=== PATIENT | female | born 1950 | race Caucasian/White ===

== ENCOUNTER → 2018-02-14 10:35 | Outpatient (CLI) | payer MEDICARE, SELFPAY ==
[2018-02-14 12:16] LABS: Absolute Lymphocyte Count 0.99 X10^3/ul (0.83-4.51); Absolute Neutrophil Count 4.3 X10^3/uL (2.0-7.7); Basophil# 0.03 X10^3/uL; Basophil% 0.5 % (0-1); Eosinophils% 3.3 % (0-5); Hematocrit 38.9 % (37-47); Hemoglobin 12.8 g/dl (12.0-15.0); Lymphocyte # 0.99 X10^3/ul (4.0); Lymphocyte % 16.5 % (19-41); Mean Corp Hgb Conc 32.9 g/gl (32-36); Mean Corpuscular Hgb 28.9 pg (27.0-32.0); Mean Corpuscular Volume 87.8 fL (81-99); Monocyte# 0.43 X10^3/uL; Monocyte% 7.2 % (0-10); Neutrophil # 4.33 X10^3/uL (2.7-7.7); Neutrophil % 72.3 % (47-70); Platelet Count 220 K/mm3 (150-450); RBC Distribution Width CV 12.4 % (11.6-14.6); RBC Distribution Width SD 39.1 fl (35.1-43.9); Red Blood Count 4.43 M/mm3 (4.2-5.4)
[2018-02-14 12:20] LABS: POSITIVE COUNT NO; POSITIVE DIFFERENTIAL NO; POSITIVE MORPHOLOGY NO
[2018-02-14 12:40] LABS: ALB/GLOB Ratio 1.2 RATIO (0.9-2.4); AST(SGOT) 21 U/L (15-37); Alanine Aminotransfer ALT/SGPT 25 U/L (13-56); Albumin, Serum 3.7 g/dL (3.2-5.0); Alkaline Phosphatase 110 U/L (45-117); Anion Gap 8 (5-15); BUN 14 mg/dL (7-18); BUN/Creat Ratio 16.9 RATIO (10-20); Calcium,Total 8.8 mg/dL (8.5-10.1); Chloride 101 mmol/L (98-107); Cholesterol 168 mg/dL (200); Creatinine, Serum 0.83 mg/dL (0.55-1.02); EST Glomerular Filtration Rate 73 mL/min (>60); Est Glom Filt Rate - Afr Amer 89 mL/min (>60); Glucose 97 mg/dL (74-106); High Density Lipoprotein 39 mg/dL; Potassium 3.1 mmol/L (3.5-5.1); Protein, Total 6.7 g/dL (6.4-8.2); Sodium Level 143 mmol/L (136-145); Triglycerides 176 mg/dL; Very Low Density Lipoprotein 35 mg/dL (5-40)
[2018-02-14 12:43] LABS: Vitamin D,25 Hydroxy 18.8 ng/mL (29.95-100.01)
== END ==
PROVIDERS: Family Provider Family Medicine; PCP Family Medicine; Visit Provider Family Medicine
DX: I10 Essential (primary) hypertension (principal); E78.5 Hyperlipidemia, unspecified; R53.83 Other fatigue; E55.9 Vitamin D deficiency, unspecified
CPT/HCPCS: 36415; 80053; 80061; 82306; 85025

== ENCOUNTER → 2018-05-05 16:18 | Outpatient (CLI) | payer MEDICARE, SELFPAY ==
--- NOTE | 2018-05-05 16:23 | BI_ITS ---
MAMMOGRAPHY - BILATERAL SCREENING REASON FOR EXAM: Female, 67 years old. Routine annual screening examination. PERTINENT HISTORY: Non-contributory. Remote right excisional breast biopsy. TECHNIQUE: Digital bilateral breast jose (3D mammographic acquisition) in the CC and MLO projections. 2-D mediolateral oblique (MLO) and craniocaudad (CC) views of both breasts were obtained. CAD: Full Field Digital Mammography with Computer Added Detection was performed. COMPARISON: Comparison is made with prior study dated May 01, 2017 and March 07, 2016. FINDINGS: Breast Composition: There are scattered areas of fibroglandular density. There are no dominant masses or suspicious calcifications. Surgical clips are seen in the right axillary region. No other significant abnormalities are identified. There has been no significant change since the prior study. BI/SCREENING MAMM (CAD), BILAT IMPRESSION: Stable bilateral screening mammogram. Yearly follow-up mammogram recommended. (A) ASSESSMENT CATEGORY: BIRADS Category 2: Benign. A letter regarding these results will be sent to the patient by the facility within 30 days. Approximately 10% of breast cancers are not detected by mammography. A normal mammogram should not delay biopsy of a clinically suspicious abnormality. [id number] Electronically Signed: Jesus Haider MD at 9:00 EDT Tel [phone], Service support ,
== END ==
PROVIDERS: Family Provider Family Medicine; PCP Family Medicine; Visit Provider Family Medicine
DX: Z12.31 Encounter for screening mammogram for malignant neoplasm of breast (principal)
CPT/HCPCS: 77063; 77067

== ENCOUNTER → 2018-05-23 12:19 | Outpatient (CLI) | payer MEDICARE, SELFPAY ==
[2018-05-23 13:49] VITALS: PULSE 100; PULSE 87; PULSE 90; PULSE 93; PULSE 94; PULSE 97; O2SAT 86; O2SAT 90; O2SAT 92; O2SAT 93; O2SAT 94; O2SAT 97
--- NOTE | 2018-05-23 13:57 | CPS ---
PT IS ESTABLISHED WITH [facility] FOR HOME OXYGEN. SHE IS NOW SWITCHING TO [facility] D/T [facility] CLOSING THE END OF THE MONTH. SHE WAS PLACED ON ROOM AIR AND RESTED PRIOR TO TESTING. AMBULATION BEGAN ON ROOM AIR, AT 2 MIN SPO2 WAS 86%, REST TAKEN AND O2 APPLIED AT 2LPM CONTINUOUS WHICH SHE WORE FOR THE REMAINDER OF TESTING.
--- NOTE | 2018-05-23 14:41 | PCM.PSN.6M ---
PSN 6 Minute Walk Test - 6 Minute Walk Test 6 Minute Walk Test: 6 Minute Walk Test PSN:6-Minute Walk Test Start: 05/23/18 13:42 Freq: Status: Active Protocol: RESP.6MINW Document 05/23/18 13:49 [facility] (Rec: 05/23/18 13:54 [facility] [id number]) 6 Minute Walk Test Date Performed 05/23/18 Time Performed 12:30 Height 61 ft 6 in Weight: 82.554 kg Weight in Pounds 182.[address]: Angelique Andrews Assistive device used: Cane Pre-test Oxygen Delivery Method Room Air Pulse Ox (%) 93 Pulse Rate (60-100 beats/min) 87 Dyspnea Ta Scale (0-10) 0 1st minute Oxygen Delivery Method Room Air Pulse Ox (%) 90 Pulse Rate (60-100 beats/min) 93 Dyspnea Ta Scale (0-10) 0 2nd minute Oxygen Delivery Method Room Air Pulse Ox (%) 86 Pulse Rate (60-100 beats/min) 94 Dyspnea Ta Scale (0-10) 1 Number of Rests Taken 1 Reported Symptoms Increased Work of Breathing 3rd minute Oxygen Flow Rate (L/min) (L/min) 2 Oxygen Delivery Method Nasal Cannula Pulse Ox (%) 93 Pulse Rate (60-100 beats/min) 90 Dyspnea Ta Scale (0-10) 1 4th minute Oxygen Flow Rate (L/min) (L/min) 2 Oxygen Delivery Method Nasal Cannula Pulse Ox (%) 92 Pulse Rate (60-100 beats/min) 93 Dyspnea Ta Scale (0-10) 2 Reported Symptoms Increased Work of Breathing 5th minute Oxygen Flow Rate (L/min) (L/min) 2 Oxygen Delivery Method Nasal Cannula Pulse Ox (%) 94 Pulse Rate (60-100 beats/min) 97 Dyspnea Ta Scale (0-10) 2 Number of Rests Taken 1 Reported Symptoms Increased Work of Breathing 6th minute Oxygen Flow Rate (L/min) (L/min) 2 Oxygen Delivery Method Nasal Cannula Pulse Ox (%) 93 Pulse Rate (60-100 beats/min) 100 Dyspnea Ta Scale (0-10) 2 Reported Symptoms Increased Work of Breathing Post-test Oxygen Flow Rate (L/min) (L/min) 2 Oxygen Delivery Method Nasal Cannula Pulse Ox (%) 97 Pulse Rate (60-100 beats/min) 87 Dyspnea Ta Scale (0-10) 0 Full Laps Walked 4 Partial Lap, Number of Tiles Walked 34 Total Distance Walked (ft) 270 - Interpretation Interpretation: The patient was noted to be 93% on room air. The patient then began ambulating and desaturated in the second minute. 2 L nasal cannula was used for the remaining distance travel. Overall, patient travel 270 feet over the course of 6 minutes with the assistance of a cane and 2 breaks. These findings are consistent with a respiratory limitation exercise tolerance. - Recommendations Recommendations: No supplemental oxygen is indicated at rest. However, patient should be using 2 L/min nasal cannula oxygen with any exertion.
--- NOTE | 2018-07-08 12:38 | WT_ITS ---
PSN 6 Minute Walk Test - 6 Minute Walk Test 6 Minute Walk Test: 6 Minute Walk Test PSN:6-Minute Walk Test Start: 05/23/18 13:42 Freq: Status: Active Protocol: RESP.6MINW Document 05/23/18 13:49 [facility] (Rec: 05/23/18 13:54 [facility] [id number]) 6 Minute Walk Test Date Performed 05/23/18 Time Performed 12:30 Height 61 ft 6 in Weight: 82.554 kg Weight in Pounds 182.[address]: Angelique Andrews Assistive device used: Cane Pre-test Oxygen Delivery Method Room Air Pulse Ox (%) 93 Pulse Rate (60-100 beats/min) 87 Dyspnea Ta Scale (0-10) 0 1st minute Oxygen Delivery Method Room Air Pulse Ox (%) 90 Pulse Rate (60-100 beats/min) 93 Dyspnea Ta Scale (0-10) 0 2nd minute Oxygen Delivery Method Room Air Pulse Ox (%) 86 Pulse Rate (60-100 beats/min) 94 Dyspnea Ta Scale (0-10) 1 Number of Rests Taken 1 Reported Symptoms Increased Work of Breathing 3rd minute Oxygen Flow Rate (L/min) (L/min) 2 Oxygen Delivery Method Nasal Cannula Pulse Ox (%) 93 Pulse Rate (60-100 beats/min) 90 Dyspnea Ta Scale (0-10) 1 4th minute Oxygen Flow Rate (L/min) (L/min) 2 Oxygen Delivery Method Nasal Cannula Pulse Ox (%) 92 Pulse Rate (60-100 beats/min) 93 Dyspnea Ta Scale (0-10) 2 Reported Symptoms Increased Work of Breathing 5th minute Oxygen Flow Rate (L/min) (L/min) 2 Oxygen Delivery Method Nasal Cannula Pulse Ox (%) 94 Pulse Rate (60-100 beats/min) 97 Dyspnea Ta Scale (0-10) 2 Number of Rests Taken 1 Reported Symptoms Increased Work of Breathing 6th minute Oxygen Flow Rate (L/min) (L/min) 2 Oxygen Delivery Method Nasal Cannula Pulse Ox (%) 93 Pulse Rate (60-100 beats/min) 100 Dyspnea Ta Scale (0-10) 2 Reported Symptoms Increased Work of Breathing Post-test Oxygen Flow Rate (L/min) (L/min) 2 Oxygen Delivery Method Nasal Cannula Pulse Ox (%) 97 Pulse Rate (60-100 beats/min) 87 Dyspnea Ta Scale (0-10) 0 Full Laps Walked 4 Partial Lap, Number of Tiles Walked 34 Total Distance Walked (ft) 270 - Interpretation Interpretation: The patient was noted to be 93% on room air. The patient then began ambulating and desaturated in the second minute. 2 L nasal cannula was used for the remaining distance travel. Overall, patient travel 270 feet over the course of 6 minutes with the assistance of a cane and 2 breaks. These findings are consistent with a respiratory limitation exercise tolerance. - Recommendations Recommendations: No supplemental oxygen is indicated at rest. However, patient should be using 2 L/min nasal cannula oxygen with any exertion.
== END ==
PROVIDERS: Family Provider Family Medicine; PCP Family Medicine; Visit Provider Internal Medicine Critical Care Medicine
DX: I27.20 Pulmonary hypertension, unspecified (principal)
CPT/HCPCS: 94618

== ENCOUNTER → 2018-11-19 13:52 | Outpatient (CLI) | payer MEDICARE, SELFPAY ==
[2018-06-25 07:15] VITALS: BMI 36.4
[2018-11-19 14:35] LABS: Absolute Lymphocyte Count 1.34 X10^3/ul (0.83-4.51); Absolute Neutrophil Count 4.8 X10^3/uL (2.0-7.7); Basophil# 0.04 X10^3/uL; Basophil% 0.6 % (0-1); Eosinophil# 0.12 X10^3/uL; Eosinophils% 1.7 % (0-5); Hematocrit 40.4 % (37-47); Hemoglobin 13.1 g/dl (12.0-15.0); Lymphocyte # 1.34 X10^3/ul (4.0); Lymphocyte % 19.4 % (19-41); Mean Corp Hgb Conc 32.4 g/gl (32-36); Mean Corpuscular Hgb 28.7 pg (27.0-32.0); Mean Corpuscular Volume 88.4 fL (81-99); Monocyte# 0.56 X10^3/uL; Monocyte% 8.1 % (0-10); Neutrophil # 4.84 X10^3/uL (2.7-7.7); Neutrophil % 70.1 % (47-70); Platelet Count 230 K/mm3 (150-450); RBC Distribution Width CV 12.5 % (11.6-14.6); RBC Distribution Width SD 39.9 fl (35.1-43.9); Red Blood Count 4.57 M/mm3 (4.2-5.4); White Blood Count 6.9 K/mm3 (4.4-11.0)
[2018-11-19 14:48] LABS: POSITIVE COUNT NO; POSITIVE DIFFERENTIAL NO; POSITIVE MORPHOLOGY NO
[2018-11-19 15:10] LABS: ALB/GLOB Ratio 1.2 RATIO (0.9-2.4); AST(SGOT) 18 U/L (15-37); Alanine Aminotransfer ALT/SGPT 31 U/L (13-56); Albumin, Serum 3.8 g/dL (3.2-5.0); Alkaline Phosphatase 137 U/L (45-117); Anion Gap 5 (5-15); BUN 16 mg/dL (7-18); BUN/Creat Ratio 19.4 RATIO (10-20); Calcium,Total 9.3 mg/dL (8.5-10.1); Chloride 105 mmol/L (98-107); Cholesterol 192 mg/dL (200); Creatinine, Serum 0.83 mg/dL (0.55-1.02); EST Glomerular Filtration Rate 73 mL/min (>60); Est Glom Filt Rate - Afr Amer 89 mL/min (>60); Globulin 3.1 g/dL (2.2-4.2); Glucose 92 mg/dL (74-106); High Density Lipoprotein 43 mg/dL; Potassium 3.8 mmol/L (3.5-5.1); Protein, Total 6.9 g/dL (6.4-8.2); Sodium Level 140 mmol/L (136-145); Triglycerides 168 mg/dL; Very Low Density Lipoprotein 34 mg/dL (5-40)
[2018-11-19 15:13] LABS: Vitamin D,25 Hydroxy 54.8 ng/mL (29.95-100.01)
== END ==
PROVIDERS: Family Provider Family Medicine; PCP Family Medicine; Referring Provider Family Medicine; Visit Provider Family Medicine
DX: E78.5 Hyperlipidemia, unspecified (principal); E55.9 Vitamin D deficiency, unspecified; E87.6 Hypokalemia; I10 Essential (primary) hypertension
CPT/HCPCS: 36415; 80053; 80061; 82306; 85025

== ENCOUNTER → 2018-12-17 06:57 | Outpatient (CLI) | payer MEDICARE, SELFPAY ==
[2018-06-25 07:15] VITALS: BMI 36.4
--- NOTE | 2018-12-17 10:33 | PFTCOMP ---
COMPLETE PULMONARY FUNCTION TEST INTERPRETATION Brief HPI: Patient is a 68 year old female, currently under the care of myself, who presents to [facility] for complete pulmonary function tests secondary to diagnosis of COPD. Respiratory therapist reports good effort and reproducible results. Interpretation: Forced expiration spirometry shows a moderately-severe large airways obstructive ventilatory defect with an FEV1 of 59% predicted. There is no significant bronchodilator response by strict ATS criteria. Spirograms are of good quality and plateau slowly, indicating slowly emptying areas of the lungs. The respiratory flow volume loop shows decreased expiratory flow rates at all lung volumes consistent with airway obstruction. Lung volumes by body plethysmography show a slightly decreased total lung capacity at 3.51 L, 81% predicted. All other lung volumes are within normal limits. Diffusion capacity by carbon monoxide is at the lower limit of normal at 63% predicted. The airway resistance is elevated. Compared to previous pulmonary function tests from 11/21/2016, there is been a significant improvement in TLC and DLCO by 12% and 26% respectively. Impression: Irreversible moderately severe mixed ventilatory defect with some improvement compared to previous study.
== END ==
PROVIDERS: Family Provider Family Medicine; PCP Family Medicine; Referring Provider Internal Medicine Critical Care Medicine; Visit Provider Internal Medicine Critical Care Medicine
DX: D86.0 Sarcoidosis of lung (principal); I27.20 Pulmonary hypertension, unspecified; J96.11 Chronic respiratory failure with hypoxia
CPT/HCPCS: 94060; 94726; 94729

== ENCOUNTER → 2019-05-06 15:30 | Outpatient (CLI) | payer MEDICARE, SELFPAY ==
[2018-12-24 07:33] VITALS: BMI 36.6
--- NOTE | 2019-05-06 15:32 | BI_ITS ---
MAMMOGRAPHY - BILATERAL SCREENING REASON FOR EXAM: Female, 68 years old. Routine annual screening examination. PERTINENT HISTORY: Non-contributory. Remote right excisional breast biopsy. TECHNIQUE: Digital bilateral breast atif (3D mammographic acquisition) in the CC and MLO projections. 2-D mediolateral oblique (MLO) and craniocaudad (CC) views of both breasts were obtained. CAD: Full Field Digital Mammography with Computer Added Detection was performed. COMPARISON: Comparison is made with prior study dated May 05, 2018 and May 01, 2017. FINDINGS: Breast Composition: There are scattered areas of fibroglandular density. There are no dominant masses or suspicious calcifications. Surgical clips are seen in the right axillary region. No other significant abnormalities are identified. There has been no significant change since the prior study. BI/SCREEN MAMM (CAD) W/ATIF BILAT IMPRESSION: Stable bilateral screening mammogram. Yearly follow-up mammogram recommended. (A) ASSESSMENT CATEGORY: BIRADS Category 2: Benign. A letter regarding these results will be sent to the patient by the facility within 30 days. Approximately 10% of breast cancers are not detected by mammography. A normal mammogram should not delay biopsy of a clinically suspicious abnormality. [id number] Electronically Signed: Jesus Haider, at 8:29 EDT , Service support ,
== END ==
PROVIDERS: Family Provider Family Medicine; PCP Family Medicine; Referring Provider Family Medicine; Visit Provider Family Medicine
DX: Z12.31 Encounter for screening mammogram for malignant neoplasm of breast (principal)
CPT/HCPCS: 77063; 77067

== ENCOUNTER → 2019-06-17 10:47 | Outpatient (CLI) | payer MEDICARE, SELFPAY ==
[2018-12-24 07:33] VITALS: BMI 36.6
[2019-06-17 11:16] VITALS: PULSE 100; PULSE 83; PULSE 87; PULSE 90; PULSE 93; PULSE 99; O2SAT 2; O2SAT 87; O2SAT 92; O2SAT 93; O2SAT 94; O2SAT 95
--- NOTE | 2019-06-17 11:19 | CPS ---
pt walked two laps for the 6 minute walk, when patient took breaks she stated her breathing was fine she was just tired and her legs were weak.
--- NOTE | 2019-06-17 15:01 | PCM.PSN.6M ---
PSN 6 Minute Walk Test - 6 Minute Walk Test 6 Minute Walk Test: 6 Minute Walk Test PSN:6-Minute Walk Test Start: 06/17/19 11:15 Freq: Status: Active Protocol: RESP.6MINW Document 06/17/19 11:16 [facility] (Rec: 06/17/19 11:21 [facility] [id number]) 6 Minute Walk Test Date Performed 06/17/19 Time Performed 11:00 Height 5 ft 2 in Weight: 82.554 kg Weight in Pounds 182.[address]: Hans Kevin Assistive device used: Cane Pre-test Oxygen Delivery Method Room Air Pulse Ox (%) 87 Pulse Rate (60-100 beats/min) 87 Dyspnea Ta Scale (0-10) 0 Exertion Ta Scale (6-20) 6 1st minute Oxygen Delivery Method Nasal Cannula Pulse Ox (%) 2 Pulse Rate (60-100 beats/min) 90 Dyspnea Ta Scale (0-10) 101 2nd minute Oxygen Flow Rate (L/min) (L/min) 2 Oxygen Delivery Method Nasal Cannula Pulse Ox (%) 93 Pulse Rate (60-100 beats/min) 99 3rd minute Oxygen Flow Rate (L/min) (L/min) 2 Oxygen Delivery Method Nasal Cannula Pulse Ox (%) 92 Pulse Rate (60-100 beats/min) 100 Number of Rests Taken 1 Reported Symptoms Increased Work of Breathing 4th minute Oxygen Flow Rate (L/min) (L/min) 2 Oxygen Delivery Method Nasal Cannula Pulse Ox (%) 94 Pulse Rate (60-100 beats/min) 90 Number of Rests Taken 1 5th minute Oxygen Flow Rate (L/min) (L/min) 2 Oxygen Delivery Method Nasal Cannula Pulse Ox (%) 94 Pulse Rate (60-100 beats/min) 93 Number of Rests Taken 1 6th minute Oxygen Flow Rate (L/min) (L/min) 2 Oxygen Delivery Method Nasal Cannula Pulse Ox (%) 95 Pulse Rate (60-100 beats/min) 87 Number of Rests Taken 1 Post-test Oxygen Flow Rate (L/min) (L/min) 2 Oxygen Delivery Method Nasal Cannula Pulse Ox (%) 95 Pulse Rate (60-100 beats/min) 83 Dyspnea Ta Scale (0-10) 0 Exertion Ta Scale (6-20) 6 Full Laps Walked 2 Partial Lap, Number of Tiles Walked 0 Total Distance Walked (ft) 118 06/17/19 11:19 Cardiopulmonary Services by Eva Lee pt walked two laps for the 6 minute walk, when patient took breaks she stated her breathing was fine she was just tired and her legs were weak. Initialized on 06/17/19 11:19 - END OF NOTE - Interpretation Interpretation: The patient was noted to be 87% on room air. The patient was then placed on 2 L nasal cannula with improvement to 90%. Patient was able to ambulate a total of 118 feet with the assistance of a cane, but took for breaks secondary to reported leg weakness. These findings are consistent with a musculoskeletal and respiratory limitation exercise tolerance. - Recommendations Recommendations: The patient should be on at least 2 L nasal cannula oxygen at all times.
== END ==
PROVIDERS: Family Provider Family Medicine; PCP Family Medicine; Referring Provider Internal Medicine Critical Care Medicine; Visit Provider Internal Medicine Critical Care Medicine
DX: I27.20 Pulmonary hypertension, unspecified (principal); J96.11 Chronic respiratory failure with hypoxia
CPT/HCPCS: 94618

== ENCOUNTER → 2020-05-05 10:50 | Outpatient (CLI) | payer MEDICARE, SELFPAY ==
[2020-02-03 06:26] VITALS: BMI 37.0
[2020-05-05 11:59] LABS: Absolute Lymphocyte Count 0.97 X10^3/uL (0.83-4.51); Absolute Neutrophil Count 5.4 X10^3/uL (2.0-7.7); Basophil# 0.04 X10^3/uL; Basophil% 0.6 % (0-1); Eosinophil# 0.22 X10^3/uL; Eosinophils% 3.1 % (0-5); Hematocrit 39.6 % (37-47); Hemoglobin 12.8 g/dL (12.0-15.0); Lymphocyte # 0.97 X10^3/ul (4.0); Lymphocyte % 13.7 % (19-41); Mean Corp Hgb Conc 32.3 g/dL (32-36); Mean Corpuscular Hgb 29.3 pg (27.0-32.0); Mean Corpuscular Volume 90.6 fL (81-99); Mean Platelet Vol. 11.5 fl (6.2-12.0); Monocyte# 0.49 X10^3/uL; Monocyte% 6.9 % (0-10); NRBC Flagged by Analyzer 0 % (0-5); Neutrophil # 5.36 X10^3/uL (2.7-7.7); Neutrophil % 75.4 % (47-70); Platelet Count 156 K/mm3 (150-450); RBC Distribution Width CV 12.1 % (11.6-14.6); RBC Distribution Width SD 39.8 fl (35.1-43.9); Red Blood Count 4.37 M/mm3 (4.2-5.4); White Blood Count 7.1 K/mm3 (4.4-11.0)
[2020-05-05 12:21] LABS: ALB/GLOB Ratio 1.3 RATIO (0.9-2.4); AST(SGOT) 16 U/L (15-37); Alanine Aminotransfer ALT/SGPT 21 U/L (13-56); Albumin, Serum 3.7 g/dL (3.2-5.0); Alkaline Phosphatase 112 U/L (45-117); Anion Gap 3 (5-15); BUN 22 mg/dL (7-18); BUN/Creat Ratio 26.7 RATIO (10-20); Calcium,Total 9.3 mg/dL (8.5-10.1); Chloride 105 mmol/L (98-107); Cholesterol 194 mg/dL (200); Creatinine, Serum 0.82 mg/dL (0.55-1.02); EST Glomerular Filtration Rate 73 mL/min (>60); Est Glom Filt Rate - Afr Amer 89 mL/min (>60); Globulin 2.9 g/dL (2.2-4.2); Glucose 95 mg/dL (74-106); High Density Lipoprotein 49 mg/dL; Potassium 3.4 mmol/L (3.5-5.1); Protein, Total 6.6 g/dL (6.4-8.2); Sodium Level 141 mmol/L (136-145); Triglycerides 158 mg/dL; Very Low Density Lipoprotein 32 mg/dL (5-40)
== END ==
PROVIDERS: PCP Family Medicine; Visit Provider Family Medicine
DX: E78.5 Hyperlipidemia, unspecified (principal); Z51.81 Encounter for therapeutic drug level monitoring; D64.9 Anemia, unspecified
CPT/HCPCS: 36415; 80053; 80061; 85025

== ENCOUNTER → 2020-06-04 07:30 | Outpatient (CLI) | payer MEDICARE, SELFPAY ==
[2020-02-03 06:26] VITALS: BMI 37.0
--- NOTE | 2020-06-04 07:32 | BI_ITS ---
MAMMOGRAPHY - BILATERAL SCREENING REASON FOR EXAM: Female, 69 years old. Routine annual screening examination. PERTINENT HISTORY: Non-contributory. Remote right excisional breast biopsy. TECHNIQUE: Digital bilateral breast atif (3D mammographic acquisition) in the CC and MLO projections. 2-D mediolateral oblique (MLO) and craniocaudad (CC) views of both breasts were obtained. CAD: Full Field Digital Mammography with Computer Added Detection was performed. COMPARISON: Comparison is made with prior study dated 05/06/2019 and 05/05/2018. FINDINGS: Breast Composition: There are scattered areas of fibroglandular density. There are no dominant masses or suspicious calcifications. Once again, surgical clips are seen in the right axillary region. Benign appearing left axillary lymph node. No other significant abnormalities are identified. There has been no significant change since the prior study. BI/SCREEN MAMM (CAD) W/ATIF BILAT IMPRESSION: Stable bilateral screening mammogram. Yearly follow-up mammogram recommended. (A) ASSESSMENT CATEGORY: BIRADS Category 2: Benign. A letter regarding these results will be sent to the patient by the facility within 30 days. Approximately 10% of breast cancers are not detected by mammography. A normal mammogram should not delay biopsy of a clinically suspicious abnormality. [id number] Electronically Signed: Jesus Haider, at 8:59 EDT , Service support ,
== END ==
LOC: OPBI 12-07 00:28
PROVIDERS: PCP Family Medicine; Referring Provider Family Medicine; Visit Provider Family Medicine
DX: Z12.31 Encounter for screening mammogram for malignant neoplasm of breast (principal)
CPT/HCPCS: 77063; 77067

== ENCOUNTER → 2021-07-28 15:25 | Outpatient (CLI) | payer MEDICARE, SELFPAY ==
--- NOTE | 2021-07-28 15:27 | BI_ITS ---
MAMMOGRAPHY - BILATERAL SCREENING REASON FOR EXAM: Female, 70 years old. Routine annual screening examination. PERTINENT HISTORY: Non-contributory. Remote right excisional breast biopsy. TECHNIQUE: Digital bilateral breast atif (3D mammographic acquisition) in the CC and MLO projections. 2-D mediolateral oblique (MLO) and craniocaudad (CC) views of both breasts were obtained. CAD: Full Field Digital Mammography with Computer Added Detection was performed. COMPARISON: Comparison is made with prior examination dated 06/04/2020 and 05/06/2019. FINDINGS: Breast Composition: There are scattered areas of fibroglandular density. There are no dominant masses or suspicious calcifications. Once again, surgical clips are seen in the right axillary region. No other significant abnormalities are identified. There has been no significant change since the prior study. BI/SCRN MAMM (CAD)W/ATIF BILAT IMPRESSION: Stable bilateral screening mammogram. Yearly follow-up mammogram recommended. (A) ASSESSMENT CATEGORY: BIRADS Category 2: Benign. A letter regarding these results will be sent to the patient by the facility within 30 days. Approximately 10% of breast cancers are not detected by mammography. A normal mammogram should not delay biopsy of a clinically suspicious abnormality. [id number] Electronically Signed: Jesus Haider MD at 8:26 EST , Service support ,
== END ==
PROVIDERS: PCP Family Medicine; Referring Provider Family Medicine; Visit Provider Family Medicine
DX: Z12.31 Encounter for screening mammogram for malignant neoplasm of breast (principal)
CPT/HCPCS: 77063; 77067

== ENCOUNTER → 2023-11-12 | Outpatient (CLI) | payer MEDICARE, SELFPAY ==
--- NOTE | 2023-11-12 15:39 | MRI_ITS ---
STUDY: MRI BRAIN WITH AND WITHOUT CONTRAST REASON FOR EXAM: Female, 73 years old. NEUROCOGNITIVE DISORDER TECHNIQUE: Standardized multiplanar fat and water weighted pulse sequences were obtained. IV 17ml clariscan was administered for the contrast portion of the examination. COMPARISON: None. FINDINGS: There is mild cerebral atrophy with widening of the extra-axial spaces and ventricular dilatation. There are a limited number of small white matter hyperintensities, distributed throughout the deep white matter tracts of the cerebral hemispheres, consistent with mild chronic white matter ischemic changes. There is no evidence for recent intracranial ischemia or other cause of cytotoxic edema on diffusion weighted imaging (DWI). Normal T2* images of the brain without demonstrated susceptibility artifact. There is no demonstrated hemosiderin stain. Thin section coronal T2-weighted images through the temporal lobes demonstrate bilateral parahippocampal atrophy which can be seen in cognitive decline from Alzheimer''s disease. Normal bilateral basal ganglia. Normal thalami. There is no extra-axial fluid accumulation. Normal flow voids within the major intracranial circulation suggesting patency by spin echo criteria. Normal venous enhancement. There is no enhancing intra-axial or extra-axial abnormality. Normal sella turcica, pituitary gland, infundibular stalk, optic chiasm and hypothalamus. Normal tectal plate and pineal gland. Normal midbrain, nirmal and medulla. Normal cerebellum. Normal basal cisterns. Normal bilateral temporal bones. Normal bilateral internal auditory canals. No demonstrated orbital abnormality, within the constraints of a routine brain study. Normal visualized paranasal sinuses. Normal calvarium and skull base. Normal visualized soft tissue structures. Normal visualized upper cervical spine. MRI/Brain W/WO Contrast IMPRESSION: Involutional changes of the brain, as described above. No acute infarct. Electronically Signed: Frank Lucero MD at 21:12 EDT ,
[2023-11-12 16:21] LABS: CREATININE FINGERSTICK 1.2 mg/dL (0.55-1.02)
== END | disposition home or self-care (01) ==
PROVIDERS: PCP Family Medicine; Referring Provider Psychiatry & Neurology Neurology; Visit Provider Psychiatry & Neurology Neurology
DX: R41.9 Unspecified symptoms and signs involving cognitive functions and awareness (principal)
CPT/HCPCS: 70553; A9575

== ENCOUNTER → 2023-12-19 | Outpatient (CLI) | payer MEDICARE, SELFPAY ==
[2023-12-19 17:40] LABS: Absolute Lymphocyte Count 1.05 X10^3/uL (0.83-4.51); Absolute Neutrophil Count 4.4 X10^3/uL (2.0-7.7); Basophil# 0.04 X10^3/uL; Basophil% 0.6 % (0-1); Eosinophil# 0.22 X10^3/uL; Eosinophils% 3.5 % (0-5); Hematocrit 40.4 % (37-47); Hemoglobin 12.6 g/dL (12.0-15.0); Lymphocyte # 1.05 X10^3/ul (0.83-4.51); Lymphocyte % 16.9 % (19-41); Mean Corp Hgb Conc 31.2 g/dL (32-36); Mean Corpuscular Hgb 28.6 pg (27.0-32.0); Mean Corpuscular Volume 91.8 fL (81-99); Mean Platelet Vol. 11.2 fl (6.2-12.0); Monocyte# 0.49 X10^3/uL; Monocyte% 7.9 % (0-10); NRBC Flagged by Analyzer 0 % (0-5); Neutrophil # 4.39 X10^3/uL (2.7-7.7); Neutrophil % 70.9 % (47-70); Platelet Count 192 K/mm3 (150-450); RBC Distribution Width CV 13.1 % (11.6-14.6); RBC Distribution Width SD 44.1 fl (35.1-43.9); White Blood Count 6.2 K/mm3 (4.4-11.0)
[2023-12-19 17:55] LABS: Vitamin D,25 Hydroxy 9.5 ng/mL
[2023-12-19 18:04] LABS: ALB/GLOB Ratio 1.2 RATIO (0.9-2.4); AST(SGOT) 22 U/L (15-37); Alanine Aminotransfer ALT/SGPT 81 U/L (13-56); Albumin, Serum 3.5 g/dL (3.2-5.0); Alkaline Phosphatase 184 U/L (45-117); Anion Gap 3 (5-15); BUN 19 mg/dL (7-18); BUN/Creat Ratio 20.8 RATIO (10-20); Calcium,Total 9.1 mg/dL (8.5-10.1); Chloride 107 mmol/L (98-107); Cholesterol 201 mg/dL (200); Creatinine, Serum 0.91 mg/dL (0.55-1.02); EST Glomerular Filtration Rate 64 mL/min (>60); Est Glom Filt Rate - Afr Amer 78 mL/min (>60); Globulin 2.9 g/dL (2.2-4.2); Glucose 95 mg/dL (74-106); High Density Lipoprotein 50 mg/dL; Potassium 4.1 mmol/L (3.5-5.1); Protein, Total 6.4 g/dL (6.4-8.2); Sodium Level 140 mmol/L (136-145); Triglycerides 114 mg/dL; Very Low Density Lipoprotein 23 mg/dL (5-40)
== END | disposition home or self-care (01) ==
LOC: BFHLAB 14:57
PROVIDERS: PCP Family Medicine; Referring Provider Family Medicine; Visit Provider Family Medicine
DX: E78.5 Hyperlipidemia, unspecified (principal); E55.9 Vitamin D deficiency, unspecified; Z51.81 Encounter for therapeutic drug level monitoring
CPT/HCPCS: 36415; 80053; 80061; 82306; 85025

== ENCOUNTER → 2024-05-21 | Outpatient (CLI) | payer MEDICARE, SELFPAY ==
[2024-05-21 18:27] LABS: Anion Gap 7 (5-15); BUN 15 mg/dL (7-18); BUN/Creat Ratio 12.5 RATIO (10-20); Calcium,Total 9.5 mg/dL (8.5-10.1); Chloride 102 mmol/L (98-107); EST Glomerular Filtration Rate 47 mL/min (>60); Est Glom Filt Rate - Afr Amer 57 mL/min (>60); Glucose 140 mg/dL (74-106); Potassium 3.7 mmol/L (3.5-5.1); Sodium Level 139 mmol/L (136-145)
[2024-05-21 18:30] LABS: Vitamin D,25 Hydroxy 40.9 ng/mL
== END | disposition home or self-care (01) ==
LOC: BFHLAB 15:46
PROVIDERS: PCP Family Medicine; Referring Provider Physician Assistant; Visit Provider Physician Assistant
DX: E55.9 Vitamin D deficiency, unspecified (principal)
CPT/HCPCS: 36415; 80048; 82306

== ENCOUNTER → 2024-12-14 | Outpatient (CLI) | payer MEDICARE, SELFPAY | END | disposition home or self-care (01) | LOC: MTLAB 16:02 | PROVIDERS: PCP Family Medicine | DX: R41.89 Other symptoms and signs involving cognitive functions and awareness (principal) | CPT/HCPCS: 36415 ==

== ENCOUNTER 2024-12-20 15:32 | Inpatient (IN) | payer MEDICARE, SELFPAY ==
[2024-12-20] VITALS (25 sets, daily range): BP systolic 62–145; BP diastolic 30–121; PULSE 83–144; RESP 20–41; TEMP 36.8–39.5; O2SAT 90–100; BMI 33.5
--- NOTE | 2024-12-20 16:19 | EX.ED.DYSGE1 ---
HPI History of Present Illness Chief Complaint: General Illness Informant: patient and friend Onset/Context/Timing Onset: Days Context: Gradual Onset Timing: Continuous Current Severity: Mild Maximum Severity: Mild Narrative Narrative: 74-year-old female history of sarcoidosis on 2 L oxygen recently diagnosed with dementia and hypertension. She lives in the basement of one of her friends. Friends with her states that she has had nausea last several days decreased mental status. She has had nausea and vomiting since Saturday intermittently. Decreased oral intake. No diarrhea. No dysuria. No fever. No recent falls or head trauma. Prior similar symptoms: No Recent Illness/Hospitalization: No [facility] Medical History (Updated 12/20/24 @ 22:[address] Silvano Wylie MD) Chronic hypoxic respiratory failure, on home oxygen therapy CKD (chronic kidney disease), stage II Dementia Tear of meniscus of right knee HTN (hypertension) Pulmonary sarcoidosis Chronic fatigue Obesity Cardiomegaly Degenerative joint disease of knee Pulmonary hypertension, secondary Hyperlipidemia Abnormality of gait and mobility Home Medications ?Medication ?Instructions ?Recorded ?Last Taken ?Type simvastatin 20 mg tablet (Zocor) 20 mg PO QPM 08/13/17 Unknown History Disability Placard #1 ea 11/11/23 Unknown Rx albuterol sulfate 90 mcg/actuation 2 puff inhalation Q6H PRN 11/22/23 Unknown Rx aerosol inhaler (ProAir HFA) shortness of breath or wheezing #18 grams donepezil 10 mg tablet 10 mg PO QDAY 11/22/23 Unknown History hydrochlorothiazide 25 mg tablet 25 mg PO QDAY 11/22/23 Unknown History potassium chloride 10 mEq 10 meq PO BID 11/22/23 Unknown History tablet,extended release fluticasone propionate 230 2 inh inhalation BID #3 ea 11/26/23 Unknown Rx mcg-salmeterol 21 mcg/actuation HFA inhaler (Advair HFA) mirtazapine 7.5 mg tablet 7.5 mg PO QHS #30 tabs 12/14/24 Unknown Rx Allergy/AdvReac Type Severity Reaction Status Date / Time No Known Allergies Allergy Verified 12/20/24 15:38 Family History Mother No problems noted. Father No problems noted. Family History no significant family his Surgical History History of arthroscopy of both knees right axillary lymph node removal Social History household members: friend(s) current occupational status: retired pets and animals: No Smoking Status: Never smoker second hand exposure: Yes alcohol intake: never substance use type: does not use caffeine: Yes Type: carbonated beverages do you feel safe at home: Yes ROS ROS ED ROS Narrative Nausea and vomiting. Decreased oral intake. Constitutional Constitutional ED: Denies chills or fever(s) Eyes Eyes: Denies blurry vision ENT ENT ED: Denies ear pain Cardiovascular Cardiovascular: Denies chest pain Respiratory/Chest Respiratory/Chest: Denies cough or dyspnea Gastrointestinal Gastrointestinal: Reports nausea and vomiting; Denies abdominal pain, constipation, diarrhea or melena Genitourinary Genitourinary ED: Denies dysuria or hematuria Musculoskeletal Musculoskeletal: Denies arthralgias Integumentary Denies abscess Neurologic Neurologic: Denies headache(s) Psychiatric Psychiatric: Denies anxiety Endocrine Endocrinology: Denies cold intolerance Hematologic/Lymphatic Hematologic/Lymphatic: Reports none Allergic/Immunologic Allergic/Immunologic ED: Denies mouth swelling, tongue swelling or urticaria EXAM Physical Exam Narrative Exam Narrative: 74-year-old female vital signs are stable and her blood pressure is elevated at 140/120 1 repeat 114/92. Pulse ox is 93% on 2 L 90% without oxygen. H EENT exam pupils round react light. Dry mucous membranes. Neck nontender no JVD. Lungs clear to auscultation bilaterally. Heart regular rhythm rate about 80 no murmur. Chest wall ribs nontender. Abdomen soft nontender. Moving all 4 extremities. Calves are nontender without edema. Neurologically she is awake. Her eyes are open. She does not know month year or where she is at. She has recently been diagnosed with dementia her friend said this is become her baseline. Const Vital Signs: 12/20/24 15:38 12/20/24 15:46 12/20/24 17:33 Temperature 98.2 F Temperature Source Oral Pulse Rate 83 Respiratory Rate 20 H Blood Pressure 145/121 H 114/92 H 94/51 L Blood Pressure Mean 129 99 65 Pulse Ox 90 93 Oxygen Delivery Method Room Air Nasal Cannula Oxygen Flow Rate (L/min) 2 12/20/24 18:58 Temperature Temperature Source Pulse Rate 101 H Respiratory Rate 28 H Blood Pressure 143/91 H Blood Pressure Mean 108 Pulse Ox 98 Oxygen Delivery Method Nasal Cannula Oxygen Flow Rate (L/min) 2 Positive well nourished and well developed; Negative for cachectic, contractures or unkempt General Appearance ED: well developed and NAD; Negative for unkempt, cachectic, contractures, cyanotic or diaphoretic Nutritional Appearance: Negative for cachectic HEENT Reports dry mucous membranes; Denies moist mucous membranes Negative for trauma or tenderness Mouth ED: Yes dry mucous membranes Mouth: dry mucous membranes Eyes PERRL Neck no lymphadenopathy, supple and no JVD Chest Wall inspection of chest normal and palpation of chest normal Resp normal respiratory effort and clear to auscultation bilaterally Effort and Inspection: Negative for retractions Auscultation: Negative for rales, rhonchi, wheezes or diminished lung sounds Cardio regular rhythm, S1 normal heart sound and S2 normal heart sound GI normal to inspection, nondistended, normoactive bowel sounds, non-tender, non-distended and no masses Palpation: soft; Negative for tender, guarding or rebound tenderness present Back/Spine no CVA tenderness General Back: Negative for CVA tenderness Cervical Spine: Negative for cervical spine tenderness Thoracic Spine / Upper Back: Negative for thoracic spinal tenderness or paraspinal muscle tenderness Lumbar Spine / Lower Back: Negative for lumbar spinal tenderness Extremity normal to inspection General Extremety ED: Negative for edema or tenderness General Extremity: Negative for edema Neuro CN's II-XII intact bilaterally Sensorium / Orientation: alert; Negative for orientation impaired, lethargic or stuporous Motor Exam: strength 5/5 throughout Psych mental status grossly normal Appearance: Negative for unkempt Attitude: No agitated Mood & Affect: Negative for depressed, anxious or tearful Skin no rashes or lesions noted and no wounds General Skin Exam: Negative for jaundice Lesions: No lesion noted Rashes: No rashes noted Sepsis Attestation Sepsis Alert: Yes Sepsis Attestation: Agree w/Sepsis Date exam was performed: 12/20/24 Possible Source of Sepsis: GI tract/intra-abdominal Sepsis Organ Dysfunction Criteria Present: SBP < 90 mmHg or MAP < 65 mmHg, Creatinine > 2.0 mg/dL, UOP < 0.5 mL/kg/hour for 2 consecutive hours, Total Bilirubin > 2 mg/dl and Lactic Acid > 2 mmol/L MDM MDM MDM Narrative Medical decision making narrative: 73-year-old female with dementia and recent nausea and vomiting. Abdomen is benign. She will be given IV fluids for mild dehydration and Zofran. Screening labs to be obtained. Repeat exam at 8:15 PM. Abdomen is benign. Patient converted to an A-fib RVR. She was treated with a Cardizem bolus. In A-fib after the Cardizem bolus but currently her heart rates in the 130 range. She will be started on a Cardizem drip. It did improve with the bolus. I went over all of her test results with her friend that she lives with. Patient herself has dementia and not sure she is exactly comprehending everything. I have the hospitalist on page for admission. I will also give her a dose of IV Zosyn due to the leukocytosis and the biliary obstruction. I have already spoken to the hospitalist. ARAMIS paged. Patient has multiple issues going on at this time including cardiac and GI. If she is admitted here she will be admitted to the ICU. I also spoke to ARAMIS. He is comfortable with the plan and admission here. He understands the patient has multiple current issues going on. Patient remained hypotensive. She was given Cardizem her A-fib RVR improved but still going 130-140. She has had 2 L of fluid and is currently on her third. Will going to have to cardiovert her to try to get her on A-fib to try to help improve her blood pressure. Patient be given 10 mg IV of etomidate and cardioverted. When she initially presented she was not in A-fib. Patient herself is demented. I have explained this to her but not sure exactly how much of it if any of that she really understands. Her friend has left the emergency department after I told her she was going to be admitted. Patient was given a total of 10 of etomidate. She was cardioverted using 360 J. She immediately cardioverted to a sinus rhythm rate around 101. Patient did not present initially as sepsis. But given her white count and hypotension I believe she is sepsis and septic shock. Also I think some of the hypotension was related to her A-fib RVR. She was started on IV Zosyn. She will be admitted to the ICU. Hypotension could also be due to dehydration. Probably a combination of sepsis, A-fib RVR, the HI and dehydration. She has received 2 L IV fluid she is currently on the third. Current blood pressure is 85/47. Repeat exam at 10:48 PM pressure is 118/85. She is awake and alert. Lerma catheter shows a fever of 1 or 2.9 show given Tylenol for that. She has received 3 L of saline. She received IV antibiotics. She is being admitted to the ICU. The cardioversion of the A-fib seem to greatly improve her blood pressure currently. History & Record Review Discussion w/independent historian: Friend Additional record(s) reviewed:: Prior inpatient record, Prior outpatient record, Prior ED visit and Prior labs Lab Data Attestation: I reviewed the patient's lab results. Lab results narrative: CBC is elevated with a white count 18.7. H&H 14 and 41. Platelets are below normal at 116. Chemistry shows sodium 139. Gap 23. BUN and creatinine of 49 and 3.97. Liver enzymes show an elevated total bilirubin of 5.85. Lipase 879 consistent with pancreatitis. TSH normal at 3.0. Lactic acid is elevated at 6.6. Troponin was elevated at 499. Labs: Laboratory Results - last 24 hr 12/20/24 12/20/24 12/20/24 17:30 18:20 19:18 WBC 18.7 H RBC 4.73 Hgb 14.2 Hct 41.2 MCV 87.1 MCH 30.0 MCHC 34.5 RDW Std Deviation 41.6 RDW Coeff of Patrice 13.1 Plt Count 116 L MPV 12.5 H Immature Gran % (Auto) 2.100 H Neut % (Auto) 94.8 H Lymph % (Auto) 1.2 L Gosper % (Auto) 1.7 Eos % (Auto) 0.0 Baso % (Auto) 0.2 Absolute Neuts (auto) 17.7 H Absolute Lymphs (auto) 0.23 L Nucleated RBC % 0 Platelet Estimate MOD DEC RBC Morphology NORM C+C Sodium 139 Potassium 3.4 Chloride 97 L Carbon Dioxide 18.8 L Anion Gap 23 H BUN 49 H Creatinine 3.97 H Estim Creat Clear Calc 12.63 L Est GFR (MDRD) Non-Af 11 L BUN/Creatinine Ratio 12.4 Glucose 75 Lactic Acid 6.6 H* Calcium 8.9 Phosphorus Magnesium Total Bilirubin 5.85 H AST 120 H ALT 141 H Alkaline Phosphatase 326 H Troponin T High Sens 499 H* Troponin T Hi Sens 2 Hr Total Protein 6.4 Albumin 3.6 Globulin 2.8 Albumin/Globulin Ratio 1.3 Lipase 879 H TSH 3.090 Urine Color Cancelled Urine Clarity Cancelled Urine pH Cancelled Ur Specific [place] Cancelled U Specif Grav (Refrac) Cancelled Urine Protein Cancelled Urine Glucose (UA) Cancelled Urine Ketones Cancelled Urine Occult Blood Cancelled Urine Nitrite Cancelled Urine Bilirubin Cancelled Urine Urobilinogen Cancelled Ur Leukocyte Esterase Cancelled Urine RBC Cancelled Urine WBC Cancelled Ur Squamous Epith Cells Cancelled Ur Transition Epith Cell Cancelled Ur Renal Epithelial Cell Cancelled Calcium Oxalate Crystal Cancelled Uric Acid Crystals Cancelled Triple Phos Crystals Cancelled Other Crystals Cancelled Amorphous Sediment Cancelled Urine Bacteria Cancelled Hyaline Casts Cancelled Fine Granular Casts Cancelled Coarse Granular Casts Cancelled Waxy Casts Cancelled RBC Casts Cancelled WBC Casts Cancelled Urine Mucus Cancelled Urine Trichomonas Cancelled Urine Yeast Cancelled 12/20/24 19:49 WBC RBC Hgb Hct MCV MCH MCHC RDW Std Deviation RDW Coeff of Patrice Plt Count MPV Immature Gran % (Auto) Neut % (Auto) Lymph % (Auto) Gosper % (Auto) Eos % (Auto) Baso % (Auto) Absolute Neuts (auto) Absolute Lymphs (auto) Nucleated RBC % Platelet Estimate RBC Morphology Sodium Potassium Chloride Carbon Dioxide Anion Gap BUN Creatinine Estim Creat Clear Calc Est GFR (MDRD) Non-Af BUN/Creatinine Ratio Glucose Lactic Acid Calcium Phosphorus 2.5 L Magnesium 1.5 Total Bilirubin AST ALT Alkaline Phosphatase Troponin T High Sens Troponin T Hi Sens 2 Hr 523 H* Total Protein Albumin Globulin Albumin/Globulin Ratio Lipase TSH Urine Color Urine Clarity Urine pH Ur Specific [place] U Specif Grav (Refrac) Urine Protein Urine Glucose (UA) Urine Ketones Urine Occult Blood Urine Nitrite Urine Bilirubin Urine Urobilinogen Ur Leukocyte Esterase Urine RBC Urine WBC Ur Squamous Epith Cells Ur Transition Epith Cell Ur Renal Epithelial Cell Calcium Oxalate Crystal Uric Acid Crystals Triple Phos Crystals Other Crystals Amorphous Sediment Urine Bacteria Hyaline Casts Fine Granular Casts Coarse Granular Casts Waxy Casts RBC Casts WBC Casts Urine Mucus Urine Trichomonas Urine Yeast Radiography Chest X-Ray - ED: 2 View, Read by ED Physician, Read by Radiologist, Heart, Lungs, Mediastinum, Bony Structures, No Acute Disease and Chronic Changes Diagnostic Testing: Clinical Impression(s) from Imaging Studies Chest X-Ray 12/20/24 17:55 IMPRESSION: Findings suggestive of mild viral infection. 12 mm left upper lobe nodule which may represent a calcified granuloma. Recommend further evaluation with CT of the chest. Reading Location: [facility] Abdomen/Pelvis CT 12/20/24 18:35 IMPRESSION: 1. Distended gallbladder and cholelithiasis. 2. 24 mm common bile duct dilation secondary to a distal obstructing calculus, compatible with acute choledocholithiasis. 3. 20 x 16 mm low-attenuation lesion mid pancreatic body. No ductal dilation. Recommend further evaluation with MRCP. 4. Multiple pulmonary nodules, measuring between 7-[address] of the chest for further evaluation. Reading Location: [facility] Chest x-ray, 2 views, AP and lateral, interpreted by by myself and radiologist. Normal cardiac silhouette. Chronic changes. No obvious pneumonia. Rhythm Strip Rhythm Strip: A-fib Rate: 176 Ectopy: None EKG Initial EKG: Interpretation: Atrial Fibrillation Comments: A-fib with RVR rate of 176 no acute signs of HI. Incomplete right bundle branch block. RVH. Follow-up EKG: Attestation: I personally reviewed and interpreted this EKG as follows: Interpretation: Sinus Tachycardia Comments: Post cardioversion. Sinus tachycardia rate of 101. Right bundle branch block. No ST elevation. Procedures Procedural Sedation 1 (Initial Baseline): Consent Signed: No Any Problems With Anesthesia: No Relationship: Patient has dementia and is a very limited informant. Sedation medication: Etomidate (10 mg IV.) Dose: 10 Route: IV Total Moderate Sedation Units: 10 Maliampati Score: Class II ASA Classification: III Comment:: Patient was procedurally sedated with a total of 10 mg of etomidate. She was then cardioverted. She tolerated it well. She was in A-fib RVR. She is now in a sinus rhythm around the 100. Blood pressure appears to be improving with the cardioversion and IV fluids. Critical Care Time Critical Care Time: Yes Critical care time (excluding procedures): 30-74 minutes, Including time spent:, Discussing w/Patient &/or Family/Supervisor Insecticide, Discussing w/Consultants, Arranging Admission or Transfer, Performing Direct Patient Care at Bedside and - (45 minutes.) Discharge Plan Dx/Rx/DC Orders Clinical Impression: Abdominal pain, Nausea and vomiting, Acute gallstone pancreatitis, Biliary obstruction, Atrial fibrillation with rapid ventricular response, History of dementia, Acute dehydration, Acute kidney injury, Leukocytosis, Non-ST elevated myocardial infarction, Acute lactic acidosis, Acute hypotension, Mass of pancreas, Septic shock Disposition Disposition: Acute Care [facility]
[2024-12-20 17:49] LABS: Absolute Lymphocyte Count 0.23 X10^3/uL (0.83-4.51); Absolute Neutrophil Count 17.7 X10^3/uL (2.0-7.7); Basophil# 0.03 X10^3/uL; Basophil% 0.2 % (0-1); Hematocrit 41.2 % (37-47); Hemoglobin 14.2 g/dL (12.0-15.0); Lymphocyte # 0.23 X10^3/ul (0.83-4.51); Lymphocyte % 1.2 % (19-41); Mean Corp Hgb Conc 34.5 g/dL (32-36); Mean Corpuscular Volume 87.1 fL (81-99); Mean Platelet Vol. 12.5 fl (6.2-12.0); Monocyte# 0.32 X10^3/uL; Monocyte% 1.7 % (0-10); NRBC Flagged by Analyzer 0 % (0-5); Neutrophil # 17.68 X10^3/uL (2.7-7.7); Neutrophil % 94.8 % (47-70); POSITIVE DIFFERENTIAL YES; POSITIVE MORPHOLOGY YES; Platelet Count 116 K/mm3 (150-450); RBC Distribution Width CV 13.1 % (11.6-14.6); RBC Distribution Width SD 41.6 fl (35.1-43.9); Red Blood Count 4.73 M/mm3 (4.2-5.4); White Blood Count 18.7 K/mm3 (4.4-11.0)
--- NOTE | 2024-12-20 17:55 | RAD_ITS ---
PROCEDURE: CHEST PA AND LATERAL 12/20/2024 REASON FOR EXAM: WEAKNESS TECHNIQUE: Frontal and lateral views of the chest. COMPARISON: None FINDINGS: Hardware: None Heart: Mild cardiomegaly. Mediastinum: There are atherosclerotic calcifications of the thoracic aorta. Lungs: 12 mm left upper lung nodule, likely a calcified granuloma. Mild bilateral interstitial thickening. Mild bibasilar atelectasis. No pneumothorax. No pleural effusion. Bones: Degenerative changes are identified within the thoracic spine. RAD/Chest PA and Lateral IMPRESSION: Findings suggestive of mild viral infection. 12 mm left upper lobe nodule which may represent a calcified granuloma. Recomm end further evaluation with CT of the chest. Reading Location: [facility]
[2024-12-20] MEDS: Ondansetron 4 MG/2 ML Vial IV (18:06)
[2024-12-20 18:07] LABS: ALB/GLOB Ratio 1.3 RATIO (0.9-2.4); AST(SGOT) 120 U/L (<=31); Alanine Aminotransfer ALT/SGPT 141 U/L (<=34); Albumin, Serum 3.6 g/dL (3.4-4.8); Alkaline Phosphatase 326 U/L (35-104); Anion Gap 23 (5-15); BUN 49 mg/dL (4-19); BUN/Creat Ratio 12.4 RATIO (10-20); Calcium,Total 8.9 mg/dL (7.6-11.0); Carbon Dioxide 18.8 mmol/L (21.0-32.0); Chloride 97 mmol/L (98-108); Creatinine, Serum 3.97 mg/dL (0.70-1.20); EST Glomerular Filtration Rate 11 (>60); Estimated Creatinine Clearance 12.63 ml/min (50-250); Globulin 2.8 g/dL (2.2-4.2); Glucose 75 mg/dL (70-99); Potassium 3.4 mmol/L (3.3-5.1); Protein, Total 6.4 g/dL (5.9-8.4); Sodium Level 139 mmol/L (133-145); Total Bilirubin 5.85 mg/dL (0.00-1.30)
[2024-12-20] MEDS: 0.9% Normal Saline (1000mL) 1,000 ML 1000 ML IV (18:07)
[2024-12-20 18:21] LABS: Differential Indicated SCAN CRITERIA MET
[2024-12-20 18:22] LABS: Platelet Estimate MOD DEC (ADEQ); Red Cell Morphology NORM C+C NORMAL (NORM C&C)
--- NOTE | 2024-12-20 18:35 | CT_ITS ---
PROCEDURE: ABDOMEN/PELVIS WITHOUT CONT 12/20/2024 REASON FOR EXAM: ELEVATED LIVER ENZYMES W/ VOMITING TECHNIQUE: Abdomen and pelvis CT without intravenous contrast. Noncontrast technique limits evaluation of the abdominal and pelvic viscera. Coronal and Sagittal reconstruction series were provided. One or more dose reduction techniques were used (e.g., Automated exposure control, adjustment of the mA and/or kV according to patient size, use of iterative reconstruction technique). PATIENT PREPARATION: Per protocol ORAL CONTRAST TYPE: None. AMOUNT: mL COMPARISON: None FINDINGS: Lung bases: Patchy opacities in the lung base, compatible with atelectasis. Multiple pulmonary nodules are noted within the right lower lobe. For example 9 mm right lower lobe nodule (series 2, image 12) 7 mm anterior right middle lobe nodule (image 12 and 10 mm right lower lobe nodule (image 17). Liver: Normal size. No obvious mass. Gallbladder: Cholelithiasis and moderately distended gallbladder. No intrahepatic ductal dilation. Common bile duct is dilated and measures 24 mm. Within the distal common bile duct at the hilum, there is a 15 mm obstructing lesion (series 601 image 45, series 2 image 92). Spleen: No splenomegaly. Calcified granulomas. Pancreas: Homogeneous attenuation. Within the mid pancreatic body, there is a 20 x 16 mm low-attenuation lesion (series 12, image 68, series 601 image 38). No ductal dilation. Adrenals: Unremarkable. Kidneys: No urolithiasis. No hydronephrosis. Bladder: Urinary bladder is collapsed which limits evaluation. Reproductive Organs: No pelvic mass. Bowel: Stomach is unremarkable. No bowel dilation or wall thickening. Colonic diverticulosis without diverticulitis Appendix: The appendix is not identified. There is no inflammatory process identified in the right lower quadrant to suggest appendicitis. Lymph nodes: No suspicious lymph node enlargement. Vasculature: Mild diffuse atherosclerotic calcifications are noted. Peritoneum / Retroperitoneum: No ascites. No pneumoperitoneum. Bones: Degenerative changes of the spine. Soft tissue: Unremarkable. CT/Abdomen/Pelvis without Cont IMPRESSION: 1. Distended gallbladder and cholelithiasis. 2. 24 mm common bile duct dilation secondary to a distal obstructing calculus, compatible with acute choledocholithiasis. 3. 20 x 16 mm low-attenuation lesion mid pancreatic body. No ductal dilation. Recommend further evaluation with MRCP. 4. Multiple pulmonary nodules, measuring between 7-[address] of the chest for further evaluation. Reading Location: [facility]
[2024-12-20 19:06] LABS: Lipase 879 U/L (13-75)
[2024-12-20] MEDS: 0.9% Normal Saline (1000mL) 1,000 ML 999 ML IV ×2 (19:24→21:28)
[2024-12-20] MEDS: dilTIAZem 25 MG/5 ML Vial IV BOLUS (19:24)
--- NOTE | 2024-12-20 20:20 | EKG12_ITS ---
Test Reason : TACHYCARDIA Blood Pressure : */* mmHG Vent. Rate : 176 BPM Atrial Rate : * BPM P-R Int : * ms QRS Dur : 106 ms QT Int : 316 ms P-R-T Axes : * 96 27 degrees QTcB Int : 540 ms Critical Test Result: High HR Atrial fibrillation with rapid ventricular response with premature ventricular or aberrantly conducted complexes Incomplete right bundle branch block Right ventricular hypertrophy with repolarization abnormality Nonspecific T wave abnormality Abnormal ECG Confirmed by Aj Quarles ([id number]), dictionary editor ANANTH SALGADO ([id number]) on 12/25/2024 1:06:42 PM Referred By: ELINA Confirmed By: Aj Quarles
[2024-12-20 20:24] LABS: Troponin T High Sensitivity 499 ng/L (<=14)
[2024-12-20 20:24] LABS: Lactic Acid 6.6 mmol/L (0.0-2.0)
[2024-12-20 20:25] LABS: Troponin T High Sens 2 HR 523 ng/L (<=14)
--- NOTE | 2024-12-20 20:28 | PCM.HP.STD ---
HPI - General General Date of Admission: 12/20/24 Date of Service: 12/20/24 Chief Complaint: Increased confusion HPI Narrative The patient is a 74 y/o F w/ PMHx: Obesity, HTN, HLD, Pulm HTN, Pulmonary Sarcoidosis with chronic hypoxic respiratory failure 2 L NC, Cardiomegaly unclear type who presents to the [facility] ED on 12/20/2024 with history of intractable nausea persistently over the last several days with increased confusion compared to previous and unfortunately in the setting has become increasingly noncompliant with her oxygen prompting ED evaluation to be cautious. Per roommate she has had no emesis, diarrhea. Workup in the ED included T98.2, heart 83, BP 145/121, respiratory rate 20, 90% on room air with most recent repeat vitals heart rate 101, BP 142/91, respiratory rate 28, 90% on 2 L nasal cannula which per record appears to be her chronic supplementation, CBC with WBC 18.7, he 1 14.2, platelet 116 with significant left shift and lymphopenia, CMP with chloride 97, carbon oxide 18, anion gap 23, BUN/creatinine 49/3.97, GFR 11, T. bili 5.85, AST/LT 120/141, alk phos 326, lipase 879, TSH 3.090, troponin with initial 499->523, lactic acid 6.6, chest x-ray with mild bilateral interstitial thickening with mild bibasilar atelectasis, 12 mm left upper lobe nodule possibly calcified granuloma, CT abdomen and pelvis with distended gallbladder and cholelithiasis, 24 mm common bile duct dilatation secondary to distal obstructing calculus compatible with acute choledocholithiasis, 20 x 16 mm low-attenuation lesion in the mid pancreatic body with no ductal dilatation with recommended follow-up MRCP, multiple pulmonary nodules measuring between 7 to 10 mm, EKG atrial fibrillation with RVR. In the ED patient ministered Zofran 4 mg IV x 1, 2 L normal saline, diltiazem 25 mg IV bolus x 1 and transitioned to cardizem drip and IV zosyn. ED discussed case with Dr. Jon Gastroenterology. [facility] Medical History (Updated 12/20/24 @ 21:[address] Renée Reed MD) Chronic hypoxic respiratory failure, on home oxygen therapy CKD (chronic kidney disease), stage II Dementia Tear of meniscus of right knee HTN (hypertension) Pulmonary sarcoidosis Chronic fatigue Obesity Cardiomegaly Degenerative joint disease of knee Pulmonary hypertension, secondary Hyperlipidemia Abnormality of gait and mobility Home Medications ?Medication ?Instructions ?Recorded ?Last Taken ?Type simvastatin 20 mg tablet (Zocor) 20 mg PO QPM 08/13/17 Unknown History Disability Placard #1 ea 11/11/23 Unknown Rx albuterol sulfate 90 mcg/actuation 2 puff inhalation Q6H PRN 11/22/23 Unknown Rx aerosol inhaler (ProAir HFA) shortness of breath or wheezing #18 grams donepezil 10 mg tablet 10 mg PO QDAY 11/22/23 Unknown History hydrochlorothiazide 25 mg tablet 25 mg PO QDAY 11/22/23 Unknown History potassium chloride 10 mEq 10 meq PO BID 11/22/23 Unknown History tablet,extended release fluticasone propionate 230 2 inh inhalation BID #3 ea 11/26/23 Unknown Rx mcg-salmeterol 21 mcg/actuation HFA inhaler (Advair HFA) mirtazapine 7.5 mg tablet 7.5 mg PO QHS #30 tabs 12/14/24 Unknown Rx Allergy/AdvReac Type Severity Reaction Status Date / Time No Known Allergies Allergy Verified 12/20/24 15:38 Family History Mother No problems noted. Father No problems noted. Family History no significant family his Surgical History History of arthroscopy of both knees right axillary lymph node removal Social History household members: friend(s) current occupational status: retired pets and animals: No Smoking Status: Never smoker second hand exposure: Yes alcohol intake: never substance use type: does not use caffeine: Yes Type: carbonated beverages do you feel safe at home: Yes ROS Review of Systems ROS Unobtainable: due to encephalopathy and due to mental condition Vital Signs Vital Signs Vital Signs: 12/20/24 15:38 12/20/24 15:46 12/20/24 17:33 Temperature 98.2 F Temperature Source Oral Pulse Rate 83 Respiratory Rate 20 H Blood Pressure 145/121 H 114/92 H 94/51 L Blood Pressure Mean 129 99 65 Pulse Ox 90 93 Oxygen Delivery Method Room Air Nasal Cannula Oxygen Flow Rate (L/min) 2 12/20/24 18:58 Temperature Temperature Source Pulse Rate 101 H Respiratory Rate 28 H Blood Pressure 143/91 H Blood Pressure Mean 108 Pulse Ox 98 Oxygen Delivery Method Nasal Cannula Oxygen Flow Rate (L/min) 2 Weight Weight: 183 lb 10.321 oz Body Mass Index (BMI) 33.5 Physical Exam Narrative Physical Examination: General: Awake, alert, oriented to her friend but not to place, month, year, president, has remained similarly confused the entire time but is interactive, due to he does report that she is more confused than her normal previous baseline but she does have underlying significant dementia, seated upright in ED bed, no acute distress but she is very restless and pulling at all her access. Skin: Normal color, normal turgor, no icterus, no cyanosis except occasional stage ecchymoses, abrasion HEENT: AT/NC, EOMI, PERRLA, dry MM, no carotid bruits or JVD noted. Lungs: Mildly diminished, greater bases, appropriate effort, no rales, ronchi or wheezing. Heart: mildly tachycardic with regular rhythm; no gallop, rub audible. Abdomen: Soft, obese, no grimacing with palpation to the abdomen including epigastric or right upper quadrant, no obvious distention, distant BS, difficult to discern any HSM given habitus. Extremities: No cyanosis, no clubbing, no marked distal edema. Neurological: Patient awake, alert, oriented as noted, cognitive function significantly decreased baseline with underlying dementia, per caregiver she is not baseline intact and more confused than normal; pupils equally reactive to light and accommodation, cranial nerves grossly normal, moving all 4 extremities, no focal deficits, strength severely globally decreased secondary to acute presentation. Psychiatric: Affect appears fatigued, no acute evidence of depressive or anxiety feelings. Results Lab / Micro Data 12/20/24 17:30 12/20/24 17:30 Labs: Laboratory Results - last 24 hr 12/20/24 17:30: WBC 18.7 H, RBC 4.73, Hgb 14.2, Hct 41.2, MCV 87.1, MCH 30.0, MCHC 34.5, RDW Std Deviation 41.6, RDW Coeff of Patrice 13.1, Plt Count 116 L, MPV 12.5 H, Immature Gran % (Auto) 2.100 H, Neut % (Auto) 94.8 H, Lymph % (Auto) 1.2 L, Mclennan % (Auto) 1.7, Eos % (Auto) 0.0, Baso % (Auto) 0.2, Absolute Neuts (auto) 17.7 H, Absolute Lymphs (auto) 0.23 L, Nucleated RBC % 0, Platelet Estimate MOD DEC, RBC Morphology NORM C+C, Sodium 139, Potassium 3.4, Chloride 97 L, Carbon Dioxide 18.8 L, Anion Gap 23 H, BUN 49 H, Creatinine 3.97 H, Estim Creat Clear Calc 12.63 L, Est GFR (MDRD) Non-Af 11 L, BUN/Creatinine Ratio 12.4, Glucose 75, Calcium 8.9, Total Bilirubin 5.85 H, AST 120 H, ALT 141 H, Alkaline Phosphatase 326 H, Troponin T High Sens 499 H*, Total Protein 6.4, Albumin 3.6, Globulin 2.8, Albumin/Globulin Ratio 1.3, Lipase 879 H, TSH 3.090 12/20/24 18:20: Urine Color Cancelled, Urine Clarity Cancelled, Urine pH Cancelled, Ur Specific [place] Cancelled, U Specif Grav (Refrac) Cancelled, Urine Protein Cancelled, Urine Glucose (UA) Cancelled, Urine Ketones Cancelled, Urine Occult Blood Cancelled, Urine Nitrite Cancelled, Urine Bilirubin Cancelled, Urine Urobilinogen Cancelled, Ur Leukocyte Esterase Cancelled, Urine RBC Cancelled, Urine WBC Cancelled, Ur Squamous Epith Cells Cancelled, Ur Transition Epith Cell Cancelled, Ur Renal Epithelial Cell Cancelled, Calcium Oxalate Crystal Cancelled, Uric Acid Crystals Cancelled, Triple Phos Crystals Cancelled, Other Crystals Cancelled, Amorphous Sediment Cancelled, Urine Bacteria Cancelled, Hyaline Casts Cancelled, Fine Granular Casts Cancelled, Coarse Granular Casts Cancelled, Waxy Casts Cancelled, RBC Casts Cancelled, WBC Casts Cancelled, Urine Mucus Cancelled, Urine Trichomonas Cancelled, Urine Yeast Cancelled 12/20/24 19:18: Lactic Acid 6.6 H* 12/20/24 19:49: Troponin T Hi Sens 2 Hr 523 H* Micro: Microbiology 12/20/24 17:35 Mucosa - Nose SARS-CoV-2, Influenza & RSV (PCR) - Final Rhythm Strip Rhythm Strip: A-fib Rate: 176 Ectopy: None Imaging Radiology Impression Chest X-Ray 12/20/24 17:55 IMPRESSION: Findings suggestive of mild viral infection. 12 mm left upper lobe nodule which may represent a calcified granuloma. Recommend further evaluation with CT of the chest. Reading Location: [facility] Abdomen/Pelvis CT 12/20/24 18:35 IMPRESSION: 1. Distended gallbladder and cholelithiasis. 2. 24 mm common bile duct dilation secondary to a distal obstructing calculus, compatible with acute choledocholithiasis. 3. 20 x 16 mm low-attenuation lesion mid pancreatic body. No ductal dilation. Recommend further evaluation with MRCP. 4. Multiple pulmonary nodules, measuring between 7-[address] of the chest for further evaluation. Reading Location: [facility] Assessment & Plan Assessment/Plan (1) Acute gallstone pancreatitis: PLAN: Plan The patient is a 74 y/o F w/ PMHx: Obesity, HTN, HLD, Pulm HTN, Pulmonary Sarcoidosis with chronic hypoxic respiratory failure 2 L NC, Cardiomegaly unclear type who presents to the [facility] ED on 12/20/2024 with history of intractable nausea persistently over the last several days with increased confusion compared to previous and unfortunately in the setting has become increasingly noncompliant with her oxygen prompting ED evaluation to be cautious. #1. Acute Sepsis secondary to Acute Encephalopathy secondary to Acute choledocholithiasis with associated Acute Pancreatitis with questionable underlying acute cholecystitis with significant hyperbilirubinemia, transaminitis: Will admit to the ICU, will continue air pumper consult, will continue completion of 30 cc/kg IV fluid bolus, will maintain on IV Zosyn, will maintain n.p.o. status, will maintain IV PPI, will continue to trend CBC, CMP, lipase, GI consulted with plan for ERCP, General surgery also consulted and aware, INR/PT/PTT requested with concern for potential auto anticoagulation, maintain on fall precautions, PT/OT/case management consulted for discharge planning. #2. Acute kidney injury on CKD stage II per prior baseline GFR trend: Secondary to acute presentation #1. Admission BUN/Cr 49/3.97, GFR 11 with previous GFR trending consistent with stage II, prior baseline creatinine noted to be primarily 0.7-0.9 however 05/21/2024 creatinine check 1.20 but nothing further beyond that, will continue to hydrate, hold nephrotoxic medications and repeat chemistry in AM. Will obtain FeNa assessment. If clinically not improving low threshold to involve nephrology. #3. Paroxysmal atrial fibrillation w/ RVR: EKG in ED w/ atrial fibrillation w/ RVR. Patient administered Cardizem bolus inventions transition to a drip in ED. Will maintain on telemetry, obtain cardiac enzyme serial set, obtain magnesium level, obtain ECHO, obtain TSH level. Cardiology consulted and evaluation pending. Will continue Cardizem drip. Given acute presentation with need for ERCP will hold on anticoagulant therapy especially until coags are obtained given acute hyperbilirubinemia/transaminitis in the setting of acute choledocholithiasis as noted #1. #4. NSTEMI, unclear subtype, suspected type II given acute presentation as noted: EKG in ED atrial fibrillation with RVR, CXR w/ mild bilateral interstitial thickening with mild basilar atelectasis with known pulmonary sarcoidosis, initial trop 499 with repeat delta troponin 523. Will maintain on a monitored bed to assure no acute myocardial infarction with serial cardiac enzymes. Magnesium level pending. Echocardiogram requested. Deferring immediate aspirin therapy and therapeutic heparin versus Lovenox given liver findings as noted in plan for intervention, coags requested as noted above as may be auto anticoagulating given presentation. #5. Acute thrombocytopenia: Admission platelets 116, suspect likely reactive given acute presentation, will continue to trend CBC. #6. Pulmonary sarcoidosis with chronic hypoxic respiratory failure complicated by pulmonary hypertension: Patient per previous review on 2 L supplementation nasal cannula, will continue supplementation, will maintain on ATC budesonide, as needed albuterol. #7. Chart reported cardiomegaly, unclear type: Most recent echocardiogram noted 11/11/2014 with EF 65%, normal diastole for age, RV systolic pressure 35 mmHg with no comparison and given reported concern for pulmonary hypertension likely has had repeat testing beyond this. Temporally holding diuretic, not on MILAGROS Imdur/ARB nor beta-elina therapy. Holding statin given acute presentation as noted. Not on any antiplatelet therapy. #8. Hypertension: Will temporarily hold diuretic therapy, will have as needed IV hydralazine in the interim. #9. Hyperlipidemia: Will hold statin therapy given acute presentation #1 as noted. #10. Anxiety and depression: Will temporarily hold mirtazapine given acute kidney injury, resume once clinically appropriate. #11. Dementia, unclear type with unclear behavioral disturbance history: Will continue patient home donepezil regimen, complicates presentation, PT/OT/case management consulted for discharge planning. #12. Obesity: Weight loss and lifestyle changes encouraged. #13. DVT prophylaxis: SCDs. #14. CODE status: Patient does not have a formal healthcare preparatory or living will in place. She does live with a good friend and is oriented to her full name Ami and daughter. For many years she took care of Ami's daughter after divorce and when it became clear that the patient had underlying cognitive decline she resided with her and continued to stay with her and she is now her caregiver. She does not have any biological family except 1 sister who she has not been in contact with for decades and does not even have information for. Given no formal healthcare power of immigration attorney but discussed with patient do feel that Ami is appropriate to at least have these initial discussions. Discussed CODE status at length including difference between FULL code, DNR-CCA and DNR-CC status. Following discussions about the differences in these status, requested full CODE STATUS at this time. Advanced Care Planning Face to Face Time: 16 minutes. Charges/Coding Visit Charges Inpatient E&M: 46115 Init Hosp L3 Procedures Hospitalists Procedures: 74954 Advncd Care Plan 30 Min
[2024-12-20] MEDS: Diltiazem 125 MG in Dextrose 5%-Water (100mL Bag) 100 ML IV (21:02)
[2024-12-20] MEDS: Piperacil/Tazobactam 4.5 GM in 0.9% Normal Saline (100mL MB+) 100 ML IV (21:03)
[2024-12-20 21:40] LABS: Magnesium 1.5 mg/dL (1.5-2.2); Phosphorus 2.5 mg/dL (2.7-4.5)
[2024-12-20] MEDS: Etomidate 20 MG/10 ML Vial 10 MG IV (21:44)
--- NOTE | 2024-12-20 21:59 | EKG12_ITS ---
Test Reason : POST CARDIOVERSION Blood Pressure : */* mmHG Vent. Rate : 101 BPM Atrial Rate : 101 BPM P-R Int : 148 ms QRS Dur : 116 ms QT Int : 380 ms P-R-T Axes : 53 82 41 degrees QTcB Int : 492 ms Sinus tachycardia Low voltage QRS Right bundle branch block Abnormal ECG Confirmed by Aj Quarles ([id number]), production editor ANANTH SALGADO ([id number]) on 12/25/2024 1:10:36 PM Referred By: ELINA Confirmed By: Aj Quarles
--- NOTE | 2024-12-20 22:06 | PCM.HOSP.N ---
Hospitalist Note Patient in the ED ended up being cardioverted in the ED secondary to onset hypotension, worsened in the ED. She was administered etomidate and was successfully cardioverted.
--- NOTE | 2024-12-20 22:07 | ED.RN ---
Dr. Wylie aware of post sedation scores and pt A&Ox2. Ok to stop charting them d/t pt has returned to baselines at this time.
[2024-12-20] MEDS: Acetaminophen 500 MG Tablet 1000 MG PO (22:37)
[2024-12-20 22:44] LABS: International Normalized Ratio 1.3; Prothrombin Time (Protime)PT. 16.5 SECONDS (11.7-14.9)
[2024-12-20 22:45] LABS: Partial Thromboplast Time 26.5 Seconds (24.1-36.2)
--- NOTE | 2024-12-20 23:04 | ECHOD_ITS ---
Reason For Study Reason For Study: NSTEMI Procedure This was a 2D Doppler, Color Flow transthoracic echocardiogram. Exam performed portable in ICU/CCU. Left Ventricle Normal LV size. The left ventricular ejection fraction is 40 %. Stage 2 diastolic dysfunction. Right Ventricle Normal RV size. Normal systolic function. Atria Normal left atrium. Normal right atrium. Mitral Valve There is mild mitral annular calcification. Mild (1+) eccentric mitral valve insufficiency. Tricuspid Valve Normal tricuspid valve. Mild (1+) tricuspid valve insufficiency. Pulmonary artery systolic pressure is 35 mmHg. Aortic Valve Trisinus/trileaflet aortic valve. Mild focal aortic valve calcification. Mild aortic stenosis. Great Vessels Normal aortic root. The pulmonary artery is normal size. and partially collapses. Pericardium/Pleural No pericardial effusion. MMode/2D Measurements & Calculations LVIDd: 4.2 cm IVSd: 0.89 cm LVOT diam: 2.0 cm LVIDs: 3.2 cm LVPWd: 0.96 cm LVOT area: 3.1 cm2 RVDd: 3.0 cm FS: 23.7 % Ao root diam: 3.3 cm LAV(MOD-bp): 39.4 ml LVAd ap4: 20.2 cm2 LAV(MOD-bp) Indexed: 21.4 ml/m2 LVLd ap4: 6.3 cm LAV(MOD-sp2): 36.4 ml EDV(MOD-sp4): 54.5 ml LAV(MOD-sp4): 41.5 ml EDV(sp4-el): 55.3 ml LVAs ap4: 15.1 cm2 LVLs ap4: 5.7 cm ESV(MOD-sp4): 33.1 ml ESV(sp4-el): 33.9 ml EF(MOD-sp4): 39.3 % EF(sp4-el): 38.7 % SV(MOD-sp4): 21.4 ml SV(MOD-sp2): 17.8 ml LVAd ap2: 19.6 cm2 LVLd ap2: 6.2 cm SI(MOD-sp4): 11.6 ml/m2 SI(MOD-sp2): 9.7 ml/m2 EDV(MOD-sp2): 51.8 ml EDV(sp2-el): 52.7 ml LVAs ap2: 15.5 cm2 LVLs ap2: 5.9 cm ESV(MOD-sp2): 34.0 ml ESV(sp2-el): 34.6 ml EF(MOD-sp2): 34.4 % SV(sp4-el): 21.4 ml LA A4 area: 16.4 cm2 LA dimension(2D): 3.0 cm TAPSE: 1.5 cm RA A4 area: 13.4 cm2 Time Measurements MV dec time: 0.23 sec Doppler Measurements & Calculations MV E max jamaal: 75.2 cm/sec Lat Peak E' Jamaal: 6.7 cm/sec Med Peak E' Jamaal: 6.2 cm/sec MV A max jamaal: 68.7 cm/sec E/E' lat: 11.2 E/E' med: 12.2 MV E/A: 1.1 Ao V2 max: 204.3 cm/sec LV V1 max: 115.2 cm/sec SV(LVOT): 53.2 ml Ao max P.7 mmHg LV V1 max P.3 mmHg Ao V2 mean: 151.9 cm/sec LV V1 mean P.9 mmHg Ao mean P.0 mmHg LV V1 mean: 80.2 cm/sec Ao V2 VTI: 33.9 cm LV V1 VTI: 17.2 cm AV (velocity ratio): 0.51 CHASIDY(I,D): 1.6 cm2 CHASIDY(V,D): 1.7 cm2 PA V2 max: 83.6 cm/sec TR max jamaal: 278.2 cm/sec TR max P.9 mmHg ECHO/Echo Complete Interpretation Summary Normal LV size. The left ventricular ejection fraction is 40 %. Stage 2 diastolic dysfunction. Pulmonary artery systolic pressure is 35 mmHg. Mild focal aortic valve calcification. Ordering Physician: Renée Reed Referring Physician: MATTEO VENEGAS Performed By: Sheyla Álvarez RDCS
[2024-12-20 23:23] LABS: Reflex Lactate? Y
[2024-12-20] MEDS: Norepinephrine 8 MG in 0.9% Normal Saline (250mL Bag) 242 ML 9.4 MG CONT INF (23:30)
[2024-12-20] MEDS: 0.9% Normal Saline (1000mL) 1,000 ML 100 ML IV (23:40)
[2024-12-20] MEDS: 0.9% Saline Lock 10 ML Syringe IV (23:52)
[2024-12-20] MEDS: Pantoprazole Sodium 40 MG in 0.9% Normal Saline (100mL MB+) 100 ML 330 MG IV (23:54)
[2024-12-21] VITALS (56 sets, daily range): BP systolic 50–147; BP diastolic 24–102; PULSE 74–106; RESP 10–39; TEMP 38.4–39.2; O2SAT 91–100; BMI 33.8
[2024-12-21] LABS: Troponin T High Sens 4 HR 612 ng/L (<=14)
[2024-12-21] MEDS: Succinylcholine Chloride 200 MG/10 ML SYRINGE 100 MG IV (00:35)
[2024-12-21] MEDS: Vasopressin 20 UNITS in 0.9% Normal Saline (50mL Bag) 24 ML 3 UNITS CONT INF ×3 (01:05→13:18)
--- NOTE | 2024-12-21 01:05 | NURSING ---
Pt yadi Mueller notified via phone of change of plan, pt will be intubated at this time with central like to follow. Will update when completed.
[2024-12-21] MEDS: fentaNYL drip 100 ML 5 MCG CONT INF (01:06)
--- NOTE | 2024-12-21 01:15 | RAD_ITS ---
PROCEDURE: ABDOMEN SINGLE VIEW (PORTABLE) 12/21/2024 REASON FOR EXAM: NG/OG PLACEMENT TECHNIQUE: Single view abdomen. FINDINGS: Nasogastric tube tip projects at the area of the body of the stomach with side port at the proximal stomach. RAD/Abdomen Single View (Portable) IMPRESSION: Nasogastric tube tip projects at the area of the body of the stomach with side port at the proximal stomach. Reading Location: [id number]
--- NOTE | 2024-12-21 01:15 | RAD_ITS ---
PROCEDURE: CHEST 1 VIEW (PORTABLE) 12/21/2024 REASON FOR EXAM: INTUBATION AN LINE PLACEMENT TECHNIQUE: Frontal view of the chest. COMPARISON: 12/20/2024 FINDINGS: Endotracheal tube now present and is 2 cm above the brianna. A right IJ line is now seen with tip projecting at the area of the lower SVC. No pneumothorax or pleural effusion identified. Asymmetric left greater than right perihilar ill-defined opacities does lower zone predominance not significantly changed. No focal consolidation. Ovoid calcification over the left apex again seen. Nasogastric tube is present extending below the diaphragm and off the inferior edge of the film. RAD/Chest 1 View (Portable) IMPRESSION: Endotracheal tube now present and is 2 cm above the brianna. A right IJ line is now seen with tip projecting at the area of the lower SVC. N o pneumothorax or pleural effusion identified. Asymmetric left greater than right perihilar ill-defined opacities does lower z one predominance not significantly changed. No focal consolidation. Reading Location: [id number]
[2024-12-21 01:22] LABS: Lactic Acid 6.4 mmol/L (0.0-2.0)
--- NOTE | 2024-12-21 01:23 | PCM.HOSP.N ---
Hospitalist Note Intubation Note: Patient with evidence of respiratory and/or impending distress. Medications administered: Succinylcholine 100 mg x 1. ETT size: 7.5 Patient intubated in standard fashion with visualization of the vocal cords with external pressure per RT applied additionally with passage of the ETT. Positioning verified with auscultation. Post-intubation CXR requested. Will plan to obtain ABG in 1 hour per discussion with RT. Central Line note: Patient with ongoing hypotension despite aggressive IVF administration attempts. Following intubation, given MAP not maintaining >65, discussed with patient caregiver both intubation and central line for planned continued higher dose pressor therapy. Consent obtained for placement of central line. Region prepped and draped in standard fashion. US guidance used to obtain access, guidewire threaded without issue, central line catheter placed over guidewire and wire removed w/ cap placed. Lines again drawn and flushed without difficulty. Central line sutured in place. CXR ordered. Procedures Hospitalists Procedures: Other Procedure - See Report (56510 nontunnel CV catheter insertion and 96177 insertion emergency airway)
--- NOTE | 2024-12-21 01:27 | PCM.HOSP.N ---
Hospitalist Note Patient remains post cardioversion from the ED in sinus rhythm. Unfortunately blood pressures continue to decline and central line recently placed with increased norepinephrine however continued MAP less than 65 thus we will also add vasopressin. Will initiate with stress dose steroids with 100 mg hydrocortisone x 1 and continuation of 50 every 6 following as well as albumin 25 g x 1 now.
[2024-12-21] MEDS: Hydrocortisone Sod Succinate 100 MG/2 ML Vial IV (01:59)
[2024-12-21] MEDS: Albumin Human 25% (100 mL) 25 GM/100 ML BAG IV (01:59)
[2024-12-21] MEDS: 0.9% Saline Lock 10 ML Syringe IV ×6 (02:04→09:23)
[2024-12-21 02:16] LABS: Allen Test Positive; Base Excess -11 mmol/L (-2 to +2); Bicarbonate 15.2 mmol/L (22-26); Blood Gas Specimen Type ART; Mode AC; O2 Delivery Device Adult Vent; PEEP 5; PO2 72 mmHG (75-100); RR 16; SITE R Radial; SO2 93 % (95-99); Total Carbon Dioxide 16 mmol/L; pCO2 31.1 mmHg (35-45)
--- NOTE | 2024-12-21 02:24 | NURSING ---
Sent message to Dr. Reed as a heads up that patient was on 10 mcg of levophed through a peripheral, unable to get a PICC line placed at this time. Dr. Reed said she would be up to place a central line. 0010: Telephone consent obtained from friend Ami for central line placement. Ami updated on pt status. She confirmed with this RN and Lázaro Jj RN, that she wanted everything done for the patient. 0015: Dr. Reed at bedside preparing for line. During setup, pt became more lethargic; respirations became more irregular and she was not managing her oral secretions well. Decision made to intubate before line placement. 0035: 100 mg succinylcholine IVP, preoxygenated w/ ambu bag 0038: #7.5 ETT placed, 23 @ lip, positive color change w/ BL breath sounds noted 0041: 16 Fr OG placed by Dr. Reed 0110: Right IJ TLC placed after tube was secured. X-ray at bedside for chest x-ray and KUB. Dr. Reed gave verbal order to use central line. 0111: BL wrist restraints applied to maintain tube/line safety. Order signed by Dr. Reed.
[2024-12-21] MEDS: Phenylephrine 10 MG in 0.9% Normal Saline (250mL Bag) 249 ML 15 MG CONT INF (02:35)
[2024-12-21] MEDS: Dextrose 50%-Water 25 GM/50 ML DISP.SYRIN IV ×3 (03:20→08:30)
--- NOTE | 2024-12-21 03:21 | NURSING ---
Unable to obtain a blood pressure reading, manual or automatic. Dr. Reed notified, came to bedside. Blood sugar checked, glucometer read lo, <10. 2 amps D50 given per Dr. Reed.
[2024-12-21] MEDS: dexMEDEtomidine 400 MCG in 0.9% Normal Saline (100mL Bag) 96 ML 10.5 MCG CONT INF (03:30)
[2024-12-21] MEDS: Dextrose 5%/0.9% NaCl 1,000 ML 75 ML IV (03:40)
[2024-12-21 03:48] LABS: Bedside Glucose 151 mg/dL (74-106)
--- NOTE | 2024-12-21 03:50 | PCM.HOSP.N ---
Hospitalist Note Patient with significantly decreasing blood pressures despite 3 pressor therapies. Blood sugar assessed and significantly decreased with 2 amps given and patient transition to a dextrose drip. Blood pressures improved following. Discussed with nursing staff attempt to de-escalate off at least 1 pressor therapy if able to. As long as patient thalia stable with plan to obtain CT head still.
--- NOTE | 2024-12-21 04:20 | CT_ITS ---
PROCEDURE: BRAIN/HEAD WITHOUT CONTRAST 12/21/2024 REASON FOR EXAM: ENCEPHALOPATHY TECHNIQUE: Head CT without intravenous contrast. Coronal and Sagittal reconstruction series were provided. One or more dose reduction techniques were used (e.g., Automated exposure control, adjustment of the mA and/or kV according to patient size, use of iterative reconstruction technique. RADIATION DOSE SUMMARY: CTDlvol: 44.99 mGy DLP: 829.85 mGycm COMPARISON: Brain MRI 11/12/2023 FINDINGS: No intracranial hemorrhage, mass effect or CT evidence of large vascular territory acute infarct. The ventricles are unchanged in size and remain midline. Age commensurate chronic and involutional changes again noted. Hypoplastic right mastoid, anatomic variant. The paranasal sinuses, mastoids and orbits appear within limits. The nasogastric tube forms a loop into the nasopharynx as appreciated on the xerox machine mechanic image and sagittal [address]/Brain/Head without Contrast IMPRESSION: No intracranial hemorrhage, mass effect or CT evidence of large vascular territ ory acute infarct. The nasogastric tube forms a loop into the nasopharynx as appreciated on the sc out image and sagittal 33 for example . Reading Location: [id number]
[2024-12-21] MEDS: Norepinephrine 8 MG in 0.9% Normal Saline (250mL Bag) 242 ML 56.3 MG CONT INF ×3 (04:47→13:53)
[2024-12-21] MEDS: Phenylephrine 10 MG in 0.9% Normal Saline (250mL Bag) 249 ML 135 MG CONT INF (05:19)
[2024-12-21] MEDS: Hydrocortisone Sod Succinate 100 MG/2 ML Vial 50 MG IV ×2 (05:27→11:27)
[2024-12-21 05:33] LABS: Bedside Glucose 85 mg/dL (74-106)
[2024-12-21 05:34] LABS: Differential Indicated MANUAL DIFF; Hemoglobin 12.1 g/dL (12.0-15.0); Mean Corp Hgb Conc 31.8 g/dL (32-36); Mean Corpuscular Hgb 29.7 pg (27.0-32.0); Mean Corpuscular Volume 93.4 fL (81-99); Mean Platelet Vol. 12.6 fl (6.2-12.0); POSITIVE COUNT YES; POSITIVE MORPHOLOGY YES; Platelet Count 57 K/mm3 (150-450); RBC Distribution Width CV 13.7 % (11.6-14.6); RBC Distribution Width SD 47.2 fl (35.1-43.9); Red Blood Count 4.07 M/mm3 (4.2-5.4); White Blood Count 25.5 K/mm3 (4.4-11.0)
[2024-12-21 05:39] LABS: Bedside Glucose < 10 mg/dL (74-106)
[2024-12-21 06:25] LABS: Lipase 920 U/L (13-75)
[2024-12-21] MEDS: Phenylephrine 10 MG in 0.9% Normal Saline (250mL Bag) 249 ML 225 MG CONT INF ×2 (06:45→07:57)
[2024-12-21] MEDS: Dextrose 10%-Water 250 ML 40 ML IV (07:09)
[2024-12-21] MEDS: Budesonide Respules 0.5 MG/2 ML AMPUL.NEB. INHALATION (07:10)
--- NOTE | 2024-12-21 07:16 | PCM.PN.HOSP ---
Reason for Visit Reason for Visit: Diagnoses Biliary acute pancreatitis without necrosis or infection (12/20/24) Subjective Subjective Events reviewed. On 3 pressors. On ventilator. Objective Data Objective Data Vital Signs: Vital Signs Temp Pulse Resp BP Pulse Ox O2 Del Method O2 Flow Rate 38.4 C H 83 28 H 101/60 95 Mechanical Ventilator 2 12/21/24 06:00 12/21/24 07:00 12/21/24 07:00 12/21/24 07:00 12/21/24 07:00 12/21/24 07:00 12/21/24 05:07 FiO2 30 12/21/24 07:00 Oxygen Flow Rate (L/min) [3] 4 Oxygen Flow Rate (L/min) [2] 4 Oxygen Flow Rate (L/min) [1 ( 4 Initial Baseline)] Oxygen Flow Rate (L/min) 2 Oxygen Delivery Method [3] Nasal Cannula Oxygen Delivery Method [2] Nasal Cannula Oxygen Delivery Method [1 ( Nasal Cannula Initial Baseline)] Oxygen Delivery Method Mechanical Ventilator Weight: 83.9 kg Body Mass Index (BMI) 33.8 Intake & Output: Intake and Output for Last 24 Hours 12/19/24 12/20/24 12/21/24 23:59 23:59 23:59 Intake Total 3105.60 / 3110.30 1846.89 / 1846.89 Balance 3105.60 / 3110.30 1846.89 / 1846.89 Lab / Micro Data 12/21/24 05:15 12/21/24 05:15 Labs: Laboratory Results - last 24 hr 12/20/24 17:30: WBC 18.7 H, RBC 4.73, Hgb 14.2, Hct 41.2, MCV 87.1, MCH 30.0, MCHC 34.5, RDW Std Deviation 41.6, RDW Coeff of Patrice 13.1, Plt Count 116 L, MPV 12.5 H, Immature Gran % (Auto) 2.100 H, Neut % (Auto) 94.8 H, Lymph % (Auto) 1.2 L, [place] % (Auto) 1.7, Eos % (Auto) 0.0, Baso % (Auto) 0.2, Absolute Neuts (auto) 17.7 H, Absolute Lymphs (auto) 0.23 L, Nucleated RBC % 0, Platelet Estimate MOD DEC, RBC Morphology NORM C+C, Sodium 139, Potassium 3.4, Chloride 97 L, Carbon Dioxide 18.8 L, Anion Gap 23 H, BUN 49 H, Creatinine 3.97 H, Estim Creat Clear Calc 12.63 L, Est GFR (MDRD) Non-Af 11 L, BUN/Creatinine Ratio 12.4, Glucose 75, Calcium 8.9, Total Bilirubin 5.85 H, AST 120 H, ALT 141 H, Alkaline Phosphatase 326 H, Troponin T High Sens 499 H*, Total Protein 6.4, Albumin 3.6, Globulin 2.8, Albumin/Globulin Ratio 1.3, Lipase 879 H, TSH 3.090 12/20/24 18:20: Urine Color Cancelled, Urine Clarity Cancelled, Urine pH Cancelled, Ur Specific [place] Cancelled, U Specif Grav (Refrac) Cancelled, Urine Protein Cancelled, Urine Glucose (UA) Cancelled, Urine Ketones Cancelled, Urine Occult Blood Cancelled, Urine Nitrite Cancelled, Urine Bilirubin Cancelled, Urine Urobilinogen Cancelled, Ur Leukocyte Esterase Cancelled, Urine RBC Cancelled, Urine WBC Cancelled, Ur Squamous Epith Cells Cancelled, Ur Transition Epith Cell Cancelled, Ur Renal Epithelial Cell Cancelled, Calcium Oxalate Crystal Cancelled, Uric Acid Crystals Cancelled, Triple Phos Crystals Cancelled, Other Crystals Cancelled, Amorphous Sediment Cancelled, Urine Bacteria Cancelled, Hyaline Casts Cancelled, Fine Granular Casts Cancelled, Coarse Granular Casts Cancelled, Waxy Casts Cancelled, RBC Casts Cancelled, WBC Casts Cancelled, Urine Mucus Cancelled, Urine Trichomonas Cancelled, Urine Yeast Cancelled 12/20/24 19:18: Lactic Acid 6.6 H* 12/20/24 19:49: Phosphorus 2.5 L, Magnesium 1.5, Troponin T Hi Sens 2 Hr 523 H* 12/20/24 22:29: PT 16.5 H, INR 1.3, APTT 26.5 12/20/24 23:25: Troponin T Hi Sens 4Hr 612 H* 12/20/24 23:45: Lactic Acid 6.4 H* 12/21/24 03:08: WBC Cancelled, Corrected WBC Cancelled, RBC Cancelled, Hgb Cancelled, Hct Cancelled, MCV Cancelled, MCH Cancelled, MCHC Cancelled, RDW Std Deviation Cancelled, RDW Coeff of Patrice Cancelled, Plt Count Cancelled, MPV Cancelled, Immature Gran % (Auto) Cancelled, Neut % (Auto) Cancelled, Lymph % (Auto) Cancelled, [place] % (Auto) Cancelled, Eos % (Auto) Cancelled, Baso % (Auto) Cancelled, Absolute Neuts (auto) Cancelled, Absolute Lymphs (auto) Cancelled, Total Counted Cancelled, Neutrophils % (Manual) Cancelled, Band Neutrophils % Cancelled, Lymphocytes % (Manual) Cancelled, Monocytes % (Manual) Cancelled, Eosinophils % (Manual) Cancelled, Basophils % (Manual) Cancelled, Metamyelocytes % Cancelled, Myelocytes % Cancelled, Promyelocytes % Cancelled, Blast Cells % Cancelled, Plasma Cell % (Manual) Cancelled, Other Cells % Cancelled, Nucleated RBC % Cancelled, Nucleated RBCs/100 WBC Cancelled, Differential Comment Cancelled, Diff Path Review Cancelled, Hypersegmented Neuts Cancelled, Atypical Lymphocytes Cancelled, Reactive Lymphocytes Cancelled, Smudge Cells Cancelled, Toxic Granulation Cancelled, Toxic Vacuolation Cancelled, Dohle Bodies Cancelled, Shira Rods Cancelled, Platelet Estimate Cancelled, Plt Morphology Comment Cancelled, RBC Morphology Cancelled 12/21/24 03:08: RBC Morphology Cancelled, Polychromasia Cancelled, Hypochromasia Cancelled, Basophilic Stippling Cancelled, Anisocytosis Cancelled, Microcytosis Cancelled, Macrocytosis Cancelled, Spherocytes Cancelled, Sickle Cells Cancelled, Target Cells Cancelled, Tear Drop Cells Cancelled, Ovalocytes Cancelled, Stomatocytes Cancelled, [place] Bodies Cancelled, Susie Cells Cancelled, Bite Cells Cancelled, Crenated Cell Cancelled, Acanthocytes (Spur) Cancelled, Rouleaux Cancelled, Schistocytes Cancelled, Sodium Cancelled, Potassium Cancelled, Chloride Cancelled, Carbon Dioxide Cancelled, Anion Gap Cancelled, BUN Cancelled, Creatinine Cancelled, Estim Creat Clear Calc Cancelled, Est GFR (MDRD) Non-Af Cancelled, BUN/Creatinine Ratio Cancelled, Glucose Cancelled, Calcium Cancelled, Total Bilirubin Cancelled, Direct Bilirubin Cancelled, AST Cancelled, ALT Cancelled, Alkaline Phosphatase Cancelled, Total Protein Cancelled, Albumin Cancelled, Globulin Cancelled, Triglycerides Cancelled, Cholesterol Cancelled, LDL Cholesterol, Calc Cancelled, VLDL Cholesterol Cancelled, HDL Cholesterol Cancelled, Cholesterol/HDL Ratio Cancelled, Lipase Cancelled, TSH Cancelled 12/21/24 03:16: POC Glucose < 10 L* 12/21/24 03:28: POC Glucose 151 H 12/21/24 05:15: WBC 25.5 H, RBC 4.07 L, Hgb 12.1, Hct 38.0, MCV 93.4 D, MCH 29.7, MCHC 31.8 L D, RDW Std Deviation 47.2 H, RDW Coeff of Patrice 13.7, Plt Count 57 L, MPV 12.6 H, Neut % (Auto) Not Reportable, Lipase 920 H, TSH 2.460, POC Glucose 85 Micro: Microbiology 12/20/24 23:20 Nasal Secretion MRSA (PCR) - Final 12/20/24 17:35 Mucosa - Nose SARS-CoV-2, Influenza & RSV (PCR) - Final ABG Data ABG results: ABG 12/21/24 02:10 Specimen Type ART Sample Site R Radial pH 7.30 L Bicarbonate Actual 15.2 L Total CO2 16 Base Excess -11 L O2 Saturation 93 L O2 % 30.0 ABG pCO2 31.1 L ABG pO2 72 L Mane Test Positive Respiration Rate 16 O2 Delivery Device Adult Vent Vent Mode AC Tidal Volume 450.0 POC PEEP 5 Radiography Diagnostic Testing: Radiology Impression Chest X-Ray 12/20/24 17:55 IMPRESSION: Findings suggestive of mild viral infection. 12 mm left upper lobe nodule which may represent a calcified granuloma. Recommend further evaluation with CT of the chest. Reading Location: [facility] Abdomen/Pelvis CT 12/20/24 18:35 IMPRESSION: 1. Distended gallbladder and cholelithiasis. 2. 24 mm common bile duct dilation secondary to a distal obstructing calculus, compatible with acute choledocholithiasis. 3. 20 x 16 mm low-attenuation lesion mid pancreatic body. No ductal dilation. Recommend further evaluation with MRCP. 4. Multiple pulmonary nodules, measuring between 7-[address] of the chest for further evaluation. Reading [facility] Chest [facility]-Ray 12/21/24 01:15 IMPRESSION: Endotracheal tube now present and is 2 cm above the brianna. A right IJ line is now seen with tip projecting at the area of the lower SVC. No pneumothorax or pleural effusion identified. Asymmetric left greater than right perihilar ill-defined opacities does lower zone predominance not significantly changed. No focal consolidation. Reading Location: [id number] X-Ray 12/21/24 01:15 IMPRESSION: Nasogastric tube tip projects at the area of the body of the stomach with side port at the proximal stomach. Reading Location: [id number] Brain CT 12/21/24 04:20 IMPRESSION: No intracranial hemorrhage, mass effect or CT evidence of large vascular territory acute infarct. The nasogastric tube forms a loop into the nasopharynx as appreciated on the city supervisor image and sagittal 33 for example . Reading Location: [facility] Rhythm Strip Rhythm Strip: A-fib Rate: 176 Ectopy: None Physical Exam Narrative POCUS: indication is septic shock. PLAX/PSAX/Apical/Subcostal view grossly showed a weak LV and dilated RV. No pericardial effusion. IVC dilated and non-collapsable with respiration. Proximal aorta visualized and measured 3.9cm, could not further evaluated as remainder was obscured by bowel gas. Const Constitutional Narrative: intubated sedated. withdraws to noxious stimuli. cachectic. HEENT HEENT Narrative: ETT and OGT inplace Eyes Eyes Narrative: no icterus. no reaction to visual field challenge. Resp Resp Narrative: coarse breath sounds bilaterally. Cardio regular rate, regular rhythm, S1 normal heart sound and S2 normal heart sound GI normal to inspection, nondistended, normoactive bowel sounds Auscultation: hypoactive bowel sounds Extremity Extremity Narrative: weak peripheral pulses. Skin Skin Narrative: mottling on LE, breasts abdomen. Assessment & Plan Assessment/Plan (1) Septic shock: PLAN: etiology unclear: cholangitis v other. follow up cultures abx w pip/tazo on norepi, vasopressin and phyenylephrine started on hydrocortisone POCUS: IVC enlarged and noncollapsable and additional IVF boluses may worsen respiratory status. (2) Acute kidney injury: PLAN: 2/2 shock. Dehydration. continue IVF monitor (3) Acute hypoxic respiratory failure: PLAN: 2/2 septic shock intubated 12/21 (4) Non-ST elevated myocardial infarction: PLAN: suspect type 2 event given septic shock and afib w RVR. though cannot rule out type I event at present. Grossly diminished LV on POCUS. formal echo report pending. cardiology consulted. (5) Atrial fibrillation with rapid ventricular response: PLAN: was on dilt gtt echo ordered. cardiology consulted. (6) Acute gallstone pancreatitis: PLAN: GI and GS on consult Clearly not a candidate for surgery/ERCP at this time given critical status DW Dr. Edward. (7) Mass of pancreas: PLAN: Cancer v other. Once more stable can have more work up. (8) Hypoglycemia: PLAN: 2/2 sepsis. received amps of dextrose and D10 infusion PLAN: Plan VTE prophylaxis: SCDs Prognosis Poor. Currently full code. No family readily available to discuss anything, much less goals of care. Charges/Coding Visit Charges Inpatient E&M: 51592 Subs Hosp L3
[2024-12-21 07:17] LABS: Cholesterol 111 mg/dL (<=200); High Density Lipoprotein 12 mg/dL; Low Density Lipoprotein Calc. 45 mg/dL; Triglycerides 272 mg/dL; Very Low Density Lipoprotein 54 mg/dL (5-40); cholesterol:hdl ratio screen 9.57
[2024-12-21 07:18] LABS: AST(SGOT) 1482 U/L (<=31); Alanine Aminotransfer ALT/SGPT 879 U/L (<=34); Albumin, Serum 3.1 g/dL (3.4-4.8); Alkaline Phosphatase 477 U/L (35-104); Anion Gap 29 (5-15); BUN 51 mg/dL (4-19); BUN/Creat Ratio 10.5 RATIO (10-20); Bilirubin, Direct 4.49 mg/dL (0.00-0.30); Calcium,Total 7.4 mg/dL (7.6-11.0); Chloride 105 mmol/L (98-108); Creatinine, Serum 4.87 mg/dL (0.70-1.20); EST Glomerular Filtration Rate 9 (>60); Estimated Creatinine Clearance 10.33 ml/min (50-250); Globulin 1.9 g/dL (2.2-4.2); Glucose 89 mg/dL (70-99); Potassium 3.4 mmol/L (3.3-5.1); Sodium Level 142 mmol/L (133-145); Total Bilirubin 5.73 mg/dL (0.00-1.30)
--- NOTE | 2024-12-21 07:42 | EX.PCM.CONCC ---
Assessment & Plan Assessment/Plan (1) Septic shock: (2) Acute hypoxic respiratory failure: PLAN: Plan RECOMMENDATIONS: 1. Continue current vasopressors in an attempt to maintain mean arterial pressure at or above 65 mmHg. 2. Continue stress dose steroids. 3. Continue empiric broad-spectrum antimicrobials. 4. Obtain and send urine and blood cultures. 5. Start sodium bicarbonate infusion. 6. Continue D10 infusion. 7. The patient is to remain n.p.o. for now. 8. Will discuss ongoing management with gastroenterology. 9. Will ask mental health case manager/social work to assist with reaching out to next of kin to discuss goals of care. IMPRESSIONS: 1. Septic shock with multisystem organ failure Clinical concern for underlying hepatobiliary source of infection leading to fluid refractory hypotension requiring vasopressor support and subsequent development of acute kidney and liver injury. At this time, we will plan to continue vasopressor support as ordered along with stress dose steroids and empiric broad-spectrum antimicrobials. I am awaiting a final decision regarding management from gastroenterology. However, I do suspect that the patient is too clinically unstable to proceed with any form of intervention. 2. Acute on chronic hypoxemic respiratory failure Clinical concern for inability to compensate for profound metabolic derangements leading to need for intubation. FiO2 requirement is minimal at the present time. Plan to continue assist-control mode of mechanical ventilation. 3. Metabolic encephalopathy Most likely related to underlying septic shock superimposed upon known Alzheimer's dementia. CT head was negative for acute intracranial findings. Continue current supportive measures. 4. Acute kidney injury Most likely prerenal in etiology with evolution to ischemic ATN in the setting of septic shock. The patient has significant underlying metabolic derangements. Accordingly, she will be initiated on a sodium bicarbonate infusion. Will obtain nephrology consultation. However, I do suspect that the patient is too clinically unstable to be able to tolerate any form of dialysis. 5. Acute liver injury Most likely ischemic hepatitis in the setting of profound septic shock. Gastroenterology has been consulted, given evidence of choledocholithiasis on CT imaging. Continue to trend liver function profile and coagulation status for now. Will await additional input from gastroenterology regarding management. 6. New onset atrial fibrillation with RVR/troponin elevation Currently back in normal sinus rhythm. I do suspect that her underlying cardiology derangements, including troponin elevation are all related to demand ischemia in the setting of septic shock. Cardiology is currently following. 7. History of pulmonary sarcoidosis/pulmonary hypertension/hypertension/hyperlipidemia/Alzheimer's dementia Complicates care, management, recovery and prognosis. Continue supportive measures as noted above. The patient is to remain n.p.o. for now. Case management and social work to assist with locating next of kin for goals of care discussion. Overall prognosis is extremely poor. TIME: 52 minutes of critical care time, independent of procedures, was spent addressing the patient's septic shock with multisystem organ failure, acute on chronic hypoxemic respiratory failure, metabolic encephalopathy, atrial fibrillation with RVR, review of all data and collaboration with the care team. HPI Consult Data Date of Consult: 12/21/24 HPI Narrative Reason for Consultation: Septic shock HPI Narrative: The patient is a 74-year-old female, with a history as outlined below, who presented to the emergency department via EMS on December 20 with worsening confusion. History pertinent to her hospitalization was obtained primarily via chart review, as the patient is currently intubated and mechanically ventilated. The patient has been followed in the pulmonary medicine clinic on an outpatient basis due to a history of pulmonary sarcoidosis, pulmonary hypertension and chronic hypoxemic respiratory failure with a baseline oxygen requirement of 2 L/min via nasal cannula. In addition, she is followed in the neurology clinic over concerns for underlying Alzheimer's dementia. The patient apparently resides with a close friend, but is estranged from any family. On presentation to the emergency department, she was initially documented to be afebrile hemodynamically stable. Laboratory evaluation was notable for a white blood cell count of 18,000. Platelet count was decreased at 116,000. Chemistry profile was notable for a bicarbonate of 18, anion gap of 23 and creatinine of 3.97. Lactate was elevated at 6.6. Total bilirubin was increased to 5.85 with an AST of 120 and ALT of 141. Troponin was increased to 499. Lipase was increased at 879. Chest x-ray demonstrated cardiomegaly along with a left upper lobe pulmonary nodule. CT abdomen/pelvis demonstrated a distended gallbladder with cholelithiasis along with a 24 mm common bile duct dilation secondary to a distal obstructing calculus. In the emergency department, the patient developed atrial fibrillation with RVR. In the setting of her dysrhythmia, the patient became hypotensive and required cardioversion. She did receive supplemental IV fluids, given concerns for sepsis. In addition, she was started on antimicrobials. The patient was subsequently admitted to the medical intensive care unit for further management. Overnight, the patient clinically decompensated and required emergent intubation along with central venous catheter placement. At the present time, she is on 3 different vasopressors in an attempt to maintain hemodynamic stability. Her multisystem organ failure has worsened. She is profoundly acidotic. Due to persistent hypoglycemia, the patient was started on a D10 infusion. In addition, given her significant underlying acidosis, a sodium bicarbonate infusion was started. The patient remains on broad-spectrum antimicrobials along with stress dose steroids. [facility] Medical History Chronic hypoxic respiratory failure, on home oxygen therapy CKD (chronic kidney disease), stage II Dementia Tear of meniscus of right knee HTN (hypertension) Pulmonary sarcoidosis Chronic fatigue Obesity Cardiomegaly Degenerative joint disease of knee Pulmonary hypertension, secondary Hyperlipidemia Abnormality of gait and mobility Home Medications ?Medication ?Instructions ?Recorded ?Last Taken ?Type simvastatin 20 mg tablet (Zocor) 20 mg PO QPM 08/13/17 Unknown History Disability Placard #1 ea 11/11/23 Unknown Rx albuterol sulfate 90 mcg/actuation 2 puff inhalation Q6H PRN 11/22/23 Unknown Rx aerosol inhaler (ProAir HFA) shortness of breath or wheezing #18 grams donepezil 10 mg tablet 10 mg PO QDAY 11/22/23 Unknown History hydrochlorothiazide 25 mg tablet 25 mg PO QDAY 11/22/23 Unknown History potassium chloride 10 mEq 10 meq PO BID 11/22/23 Unknown History tablet,extended release fluticasone propionate 230 2 inh inhalation BID #3 ea 11/26/23 Unknown Rx mcg-salmeterol 21 mcg/actuation HFA inhaler (Advair HFA) mirtazapine 7.5 mg tablet 7.5 mg PO QHS #30 tabs 12/14/24 Unknown Rx Allergy/AdvReac Type Severity Reaction Status Date / Time No Known Allergies Allergy Verified 12/20/24 15:38 Family History Mother No problems noted. Father No problems noted. Family History no significant family his Surgical History History of arthroscopy of both knees right axillary lymph node removal Social History household members: friend(s) current occupational status: retired pets and animals: No Smoking Status: Never smoker second hand exposure: Yes alcohol intake: never substance use type: does not use caffeine: Yes Type: carbonated beverages do you feel safe at home: Yes ROS Review of Systems ROS Unobtainable: due to endotracheal tube and due to mental status Physical Exam Const Constitutional Narrative: Intubated, sedated and mechanically ventilated. General Appearance: ill appearing Positive for acutely HEENT normocephalic and head/scalp atraumatic Mouth: endotracheal tube in place and OG tube in place Eyes EOMs intact bilaterally and conjunctivae normal Neck supple General: trachea midline and CVC in place Chest inspection of chest normal Resp Effort and Inspection: tachypneic Auscultation: diminished lung sounds Cardio regular rate and regular rhythm GI normal to inspection, nondistended, normoactive bowel sounds Extremity General Extremity: Negative for clubbing or edema Skin General Skin Exam: venous stasis and dermatitis Neuro Sensorium / Orientation: sedated on vent Lab / Micro Data 12/21/24 05:15 12/21/24 05:15 Labs: Laboratory Results - last 24 hr 12/20/24 17:30: WBC 18.7 H, RBC 4.73, Hgb 14.2, Hct 41.2, MCV 87.1, MCH 30.0, MCHC 34.5, RDW Std Deviation 41.6, RDW Coeff of Patrice 13.1, Plt Count 116 L, MPV 12.5 H, Immature Gran % (Auto) 2.100 H, Neut % (Auto) 94.8 H, Lymph % (Auto) 1.2 L, Larue % (Auto) 1.7, Eos % (Auto) 0.0, Baso % (Auto) 0.2, Absolute Neuts (auto) 17.7 H, Absolute Lymphs (auto) 0.23 L, Nucleated RBC % 0, Platelet Estimate MOD DEC, RBC Morphology NORM C+C, Sodium 139, Potassium 3.4, Chloride 97 L, Carbon Dioxide 18.8 L, Anion Gap 23 H, BUN 49 H, Creatinine 3.97 H, Estim Creat Clear Calc 12.63 L, Est GFR (MDRD) Non-Af 11 L, BUN/Creatinine Ratio 12.4, Glucose 75, Calcium 8.9, Total Bilirubin 5.85 H, AST 120 H, ALT 141 H, Alkaline Phosphatase 326 H, Troponin T High Sens 499 H*, Total Protein 6.4, Albumin 3.6, Globulin 2.8, Albumin/Globulin Ratio 1.3, Lipase 879 H, TSH 3.090 12/20/24 18:20: Urine Color Cancelled, Urine Clarity Cancelled, Urine pH Cancelled, Ur Specific [place] Cancelled, U Specif Grav (Refrac) Cancelled, Urine Protein Cancelled, Urine Glucose (UA) Cancelled, Urine Ketones Cancelled, Urine Occult Blood Cancelled, Urine Nitrite Cancelled, Urine Bilirubin Cancelled, Urine Urobilinogen Cancelled, Ur Leukocyte Esterase Cancelled, Urine RBC Cancelled, Urine WBC Cancelled, Ur Squamous Epith Cells Cancelled, Ur Transition Epith Cell Cancelled, Ur Renal Epithelial Cell Cancelled, Calcium Oxalate Crystal Cancelled, Uric Acid Crystals Cancelled, Triple Phos Crystals Cancelled, Other Crystals Cancelled, Amorphous Sediment Cancelled, Urine Bacteria Cancelled, Hyaline Casts Cancelled, Fine Granular Casts Cancelled, Coarse Granular Casts Cancelled, Waxy Casts Cancelled, RBC Casts Cancelled, WBC Casts Cancelled, Urine Mucus Cancelled, Urine Trichomonas Cancelled, Urine Yeast Cancelled 12/20/24 19:18: Lactic Acid 6.6 H* 12/20/24 19:49: Phosphorus 2.5 L, Magnesium 1.5, Troponin T Hi Sens 2 Hr 523 H* 12/20/24 22:29: PT 16.5 H, INR 1.3, APTT 26.5 12/20/24 23:25: Troponin T Hi Sens 4Hr 612 H* 12/20/24 23:45: Lactic Acid 6.4 H* 12/21/24 03:08: WBC Cancelled, Corrected WBC Cancelled, RBC Cancelled, Hgb Cancelled, Hct Cancelled, MCV Cancelled, MCH Cancelled, MCHC Cancelled, RDW Std Deviation Cancelled, RDW Coeff of Patrice Cancelled, Plt Count Cancelled, MPV Cancelled, Immature Gran % (Auto) Cancelled, Neut % (Auto) Cancelled, Lymph % (Auto) Cancelled, Larue % (Auto) Cancelled, Eos % (Auto) Cancelled, Baso % (Auto) Cancelled, Absolute Neuts (auto) Cancelled, Absolute Lymphs (auto) Cancelled, Total Counted Cancelled, Neutrophils % (Manual) Cancelled, Band Neutrophils % Cancelled, Lymphocytes % (Manual) Cancelled, Monocytes % (Manual) Cancelled, Eosinophils % (Manual) Cancelled, Basophils % (Manual) Cancelled, Metamyelocytes % Cancelled, Myelocytes % Cancelled, Promyelocytes % Cancelled, Blast Cells % Cancelled, Plasma Cell % (Manual) Cancelled, Other Cells % Cancelled, Nucleated RBC % Cancelled, Nucleated RBCs/100 WBC Cancelled, Differential Comment Cancelled, Diff Path Review Cancelled, Hypersegmented Neuts Cancelled, Atypical Lymphocytes Cancelled, Reactive Lymphocytes Cancelled, Smudge Cells Cancelled, Toxic Granulation Cancelled, Toxic Vacuolation Cancelled, Dohle Bodies Cancelled, Shira Rods Cancelled, Platelet Estimate Cancelled, Plt Morphology Comment Cancelled, RBC Morphology Cancelled 12/21/24 03:08: RBC Morphology Cancelled, Polychromasia Cancelled, Hypochromasia Cancelled, Basophilic Stippling Cancelled, Anisocytosis Cancelled, Microcytosis Cancelled, Macrocytosis Cancelled, Spherocytes Cancelled, Sickle Cells Cancelled, Target Cells Cancelled, Tear Drop Cells Cancelled, Ovalocytes Cancelled, Stomatocytes Cancelled, Najera-Gosnell Bodies Cancelled, Susie Cells Cancelled, Bite Cells Cancelled, Crenated Cell Cancelled, Acanthocytes (Spur) Cancelled, Rouleaux Cancelled, Schistocytes Cancelled, Sodium Cancelled, Potassium Cancelled, Chloride Cancelled, Carbon Dioxide Cancelled, Anion Gap Cancelled, BUN Cancelled, Creatinine Cancelled, Estim Creat Clear Calc Cancelled, Est GFR (MDRD) Non-Af Cancelled, BUN/Creatinine Ratio Cancelled, Glucose Cancelled, Calcium Cancelled, Total Bilirubin Cancelled, Direct Bilirubin Cancelled, AST Cancelled, ALT Cancelled, Alkaline Phosphatase Cancelled, Total Protein Cancelled, Albumin Cancelled, Globulin Cancelled, Triglycerides Cancelled, Cholesterol Cancelled, LDL Cholesterol, Calc Cancelled, VLDL Cholesterol Cancelled, HDL Cholesterol Cancelled, Cholesterol/HDL Ratio Cancelled, Lipase Cancelled, TSH Cancelled 12/21/24 03:16: POC Glucose < 10 L* 12/21/24 03:28: POC Glucose 151 H 12/21/24 05:15: WBC 25.5 H, RBC 4.07 L, Hgb 12.1, Hct 38.0, MCV 93.4 D, MCH 29.7, MCHC 31.8 L D, RDW Std Deviation 47.2 H, RDW Coeff of Patrice 13.7, Plt Count 57 L, MPV 12.6 H, Neut % (Auto) Not Reportable, Sodium 142, Potassium 3.4, Chloride 105, Carbon Dioxide 8.4 L*, Anion Gap 29 H, BUN 51 H, Creatinine 4.87 H, Estim Creat Clear Calc 10.33 L, Est GFR (MDRD) Non-Af 9 L, BUN/Creatinine Ratio 10.5, Glucose 89, Calcium 7.4 L, Total Bilirubin 5.73 H, Direct Bilirubin 4.49 H, AST 1482 H, ALT 879 H, Alkaline Phosphatase 477 H, Total Protein 5.0 L, Albumin 3.1 L, Globulin 1.9 L, Triglycerides 272 H, Cholesterol 111, LDL Cholesterol, Calc 45, VLDL Cholesterol 54 H, HDL Cholesterol 12 L, Cholesterol/HDL Ratio 9.57, Lipase 920 H, TSH 2.460, POC Glucose 85 Micro: Microbiology 12/20/24 23:20 Nasal Secretion MRSA (PCR) - Final 12/20/24 17:35 Mucosa - Nose SARS-CoV-2, Influenza & RSV (PCR) - Final ABG Data ABG results: ABG 12/21/24 02:10 Specimen Type ART Sample Site R Radial pH 7.30 L Bicarbonate Actual 15.2 L Total CO2 16 Base Excess -11 L O2 Saturation 93 L O2 % 30.0 ABG pCO2 31.1 L ABG pO2 72 L Mane Test Positive Respiration Rate 16 O2 Delivery Device Adult Vent Vent Mode AC Tidal Volume 450.0 POC PEEP 5 Rhythm Strip Rhythm Strip: A-fib Rate: 176 Ectopy: None Imaging Radiology Impression Chest X-Ray 12/20/24 17:55 IMPRESSION: Findings suggestive of mild viral infection. 12 mm left upper lobe nodule which may represent a calcified granuloma. Recommend further evaluation with CT of the chest. [facility]Pelvis CT 12/20/24 18:35 IMPRESSION: 1. Distended gallbladder and cholelithiasis. 2. 24 mm common bile duct dilation secondary to a distal obstructing calculus, compatible with acute choledocholithiasis. 3. 20 x 16 mm low-attenuation lesion mid pancreatic body. No ductal dilation. Recommend further evaluation with MRCP. 4. Multiple pulmonary nodules, measuring between 7-[address] of the chest for further evaluation. Reading Location: [facility] Chest X-Ray 12/21/24 01:15 IMPRESSION: Endotracheal tube now present and is 2 cm above the brianna. A right IJ line is now seen with tip projecting at the area of the lower SVC. No pneumothorax or pleural effusion identified. Asymmetric left greater than right perihilar ill-defined opacities does lower zone predominance not significantly changed. No focal consolidation. Reading Location: [facility] X-Ray 12/21/24 01:15 IMPRESSION: Nasogastric tube tip projects at the area of the body of the stomach with side port at the proximal stomach. Reading Location: [facility] Brain CT 12/21/24 04:20 IMPRESSION: No intracranial hemorrhage, mass effect or CT evidence of large vascular territory acute infarct. 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 Reading Location: [facility] Charges/Coding Procedures Hospitalists Procedures: 47002 Critical Care 1st Hr
[2024-12-21] MEDS: Chlorhexidine 15 ML PO (08:02)
--- NOTE | 2024-12-21 08:18 | PCM.CONS.C ---
Assessment & Plan Assessment/Plan (1) Atrial fibrillation with rapid ventricular response: PLAN: Plan Patient originally presented in atrial fibrillation with a right bundle branch block and a rapid ventricular response. Given her hypotension and RVR the patient was appropriately direct-current cardioverted in the emergency department. She has remained in sinus rhythm since that point in time. The patient is acutely septic related to gallstone pancreatitis. She is on 3 pressors. At this point in time the patient's cardiovascular status appears to be stabilized. Her rhythm remains sinus. Should she revert into atrial fibrillation and become hypotensive repeat direct-current cardioversion would be indicated or alternatively rate control with a combination of Lanoxin and/or amiodarone to avoid blood pressure depression. The patient's prognosis is poor she does have acute renal failure. HPI Consult Data Date of Consult: 12/21/24 HPI Narrative Reason for Consultation: Atrial for with rapid ventricular response HPI Narrative: CHRISTINE VAUGHAN, is a 74 F who presents to the emergency department with altered mental status hypoxia and hypotension. Patient was diagnosed with gallstone pancreatitis. On presentation the patient was in atrial fibrillation with a rapid ventricular response and a right bundle branch block on her ECG. She became hypotensive in the emergency department and was cardioverted by direct-current cardioversion to sinus rhythm at 101 bpm with a persistent right bundle branch block. The patient has remained in sinus rhythm since that point in time. She is currently on 3 pressors to maintain her blood pressure in the 100 systolic range. The patient lives in the basement of her friend's home and there is no family available. The case was discussed with the dependency counselor. [facility] Medical History Chronic hypoxic respiratory failure, on home oxygen therapy CKD (chronic kidney disease), stage II Dementia Tear of meniscus of right knee HTN (hypertension) Pulmonary sarcoidosis Chronic fatigue Obesity Cardiomegaly Degenerative joint disease of knee Pulmonary hypertension, secondary Hyperlipidemia Abnormality of gait and mobility Home Medications ?Medication ?Instructions ?Recorded ?Last Taken ?Type simvastatin 20 mg tablet (Zocor) 20 mg PO QPM 08/13/17 Unknown History Disability Placard #1 ea 11/11/23 Unknown Rx albuterol sulfate 90 mcg/actuation 2 puff inhalation Q6H PRN 11/22/23 Unknown Rx aerosol inhaler (ProAir HFA) shortness of breath or wheezing #18 grams donepezil 10 mg tablet 10 mg PO QDAY 11/22/23 Unknown History hydrochlorothiazide 25 mg tablet 25 mg PO QDAY 11/22/23 Unknown History potassium chloride 10 mEq 10 meq PO BID 11/22/23 Unknown History tablet,extended release fluticasone propionate 230 2 inh inhalation BID #3 ea 11/26/23 Unknown Rx mcg-salmeterol 21 mcg/actuation HFA inhaler (Advair HFA) mirtazapine 7.5 mg tablet 7.5 mg PO QHS #30 tabs 12/14/24 Unknown Rx Allergy/AdvReac Type Severity Reaction Status Date / Time No Known Allergies Allergy Verified 12/20/24 15:38 Family History Mother No problems noted. Father No problems noted. Family History no significant family his Surgical History History of arthroscopy of both knees right axillary lymph node removal Social History household members: friend(s) current occupational status: retired pets and animals: No Smoking Status: Never smoker second hand exposure: Yes alcohol intake: never substance use type: does not use caffeine: Yes Type: carbonated beverages do you feel safe at home: Yes ROS Review of Systems ROS Unobtainable: due to endotracheal tube Physical Exam Const Constitutional Narrative: Patient is intubated and sedated on 3 pressors. Patient is minimally responsive. Neck no JVD Chest inspection of chest normal Resp Resp Narrative: Intubated and sedated relatively clear to auscultation. Cardio regular rate, regular rhythm, S1 normal heart sound, S2 normal heart sound, no murmurs, no rub and no gallops Cardio Narrative: Distant heart tones GI soft to palpation Extremity Extremity Narrative: Hyperkeratosis noted on the lower extremities. Neuro Neuro Narrative: Intubated and sedated. Risk Stratification Risk Stratification Applicable: Yes Age >/= 65: Yes >/= 3 CAD Risk Factors (HTN, HLD, DM, family hx of CAD, or current smoker): No Aspirin Use in the Past 7 Days: No Severe Angina (>/= episodes in 24 hours): No EKG ST Changes >/= 0.5mm: No Positive Cardiac Marker: Yes MOLLY Risk Stratification Score: 2 MOLLY % Risk: 8% Risk Charges/Coding Visit Charges Inpatient E&M: 40298 Init Hosp L2 Objective Data Vital Signs: Vital Signs Temp Pulse Resp BP Pulse Ox O2 Del Method O2 Flow Rate 101.2 F H 82 28 H 106/78 95 Mechanical Ventilator 2 12/21/24 06:00 12/21/24 07:00 12/21/24 07:00 12/21/24 07:45 12/21/24 07:00 12/21/24 07:00 12/21/24 05:07 FiO2 30 12/21/24 07:00 Oxygen Flow Rate (L/min) [3] 4 Oxygen Flow Rate (L/min) [2] 4 Oxygen Flow Rate (L/min) [1 ( 4 Initial Baseline)] Oxygen Flow Rate (L/min) 2 Oxygen Delivery Method [3] Nasal Cannula Oxygen Delivery Method [2] Nasal Cannula Oxygen Delivery Method [1 ( Nasal Cannula Initial Baseline)] Oxygen Delivery Method Mechanical Ventilator Weight: 184 lb 15.485 oz Body Mass Index (BMI) 33.8 Intake & Output: Intake and Output for Last 24 Hours 12/19/24 12/20/24 12/21/24 23:59 23:59 23:59 Intake Total 3105.60 / 3110.30 2040.64 / 2040.64 Balance 3105.60 / 3110.30 2040.64 / 2040.64 Lab / Micro Data Attestation: I reviewed the patient's lab results. 12/21/24 05:15 12/21/24 05:15 Labs: Laboratory Results - last 24 hr 12/20/24 17:30: WBC 18.7 H, RBC 4.73, Hgb 14.2, Hct 41.2, MCV 87.1, MCH 30.0, MCHC 34.5, RDW Std Deviation 41.6, RDW Coeff of Patrice 13.1, Plt Count 116 L, MPV 12.5 H, Immature Gran % (Auto) 2.100 H, Neut % (Auto) 94.8 H, Lymph % (Auto) 1.2 L, [place] % (Auto) 1.7, Eos % (Auto) 0.0, Baso % (Auto) 0.2, Absolute Neuts (auto) 17.7 H, Absolute Lymphs (auto) 0.23 L, Nucleated RBC % 0, Platelet Estimate MOD DEC, RBC Morphology NORM C+C, Sodium 139, Potassium 3.4, Chloride 97 L, Carbon Dioxide 18.8 L, Anion Gap 23 H, BUN 49 H, Creatinine 3.97 H, Estim Creat Clear Calc 12.63 L, Est GFR (MDRD) Non-Af 11 L, BUN/Creatinine Ratio 12.4, Glucose 75, Calcium 8.9, Total Bilirubin 5.85 H, AST 120 H, ALT 141 H, Alkaline Phosphatase 326 H, Troponin T High Sens 499 H*, Total Protein 6.4, Albumin 3.6, Globulin 2.8, Albumin/Globulin Ratio 1.3, Lipase 879 H, TSH 3.090 12/20/24 18:20: Urine Color Cancelled, Urine Clarity Cancelled, Urine pH Cancelled, Ur Specific [place] Cancelled, U Specif Grav (Refrac) Cancelled, Urine Protein Cancelled, Urine Glucose (UA) Cancelled, Urine Ketones Cancelled, Urine Occult Blood Cancelled, Urine Nitrite Cancelled, Urine Bilirubin Cancelled, Urine Urobilinogen Cancelled, Ur Leukocyte Esterase Cancelled, Urine RBC Cancelled, Urine WBC Cancelled, Ur Squamous Epith Cells Cancelled, Ur Transition Epith Cell Cancelled, Ur Renal Epithelial Cell Cancelled, Calcium Oxalate Crystal Cancelled, Uric Acid Crystals Cancelled, Triple Phos Crystals Cancelled, Other Crystals Cancelled, Amorphous Sediment Cancelled, Urine Bacteria Cancelled, Hyaline Casts Cancelled, Fine Granular Casts Cancelled, Coarse Granular Casts Cancelled, Waxy Casts Cancelled, RBC Casts Cancelled, WBC Casts Cancelled, Urine Mucus Cancelled, Urine Trichomonas Cancelled, Urine Yeast Cancelled 12/20/24 19:18: Lactic Acid 6.6 H* 12/20/24 19:49: Phosphorus 2.5 L, Magnesium 1.5, Troponin T Hi Sens 2 Hr 523 H* 12/20/24 22:29: PT 16.5 H, INR 1.3, APTT 26.5 12/20/24 23:25: Troponin T Hi Sens 4Hr 612 H* 12/20/24 23:45: Lactic Acid 6.4 H* 12/21/24 03:08: WBC Cancelled, Corrected WBC Cancelled, RBC Cancelled, Hgb Cancelled, Hct Cancelled, MCV Cancelled, MCH Cancelled, MCHC Cancelled, RDW Std Deviation Cancelled, RDW Coeff of Patrice Cancelled, Plt Count Cancelled, MPV Cancelled, Immature Gran % (Auto) Cancelled, Neut % (Auto) Cancelled, Lymph % (Auto) Cancelled, [place] % (Auto) Cancelled, Eos % (Auto) Cancelled, Baso % (Auto) Cancelled, Absolute Neuts (auto) Cancelled, Absolute Lymphs (auto) Cancelled, Total Counted Cancelled, Neutrophils % (Manual) Cancelled, Band Neutrophils % Cancelled, Lymphocytes % (Manual) Cancelled, Monocytes % (Manual) Cancelled, Eosinophils % (Manual) Cancelled, Basophils % (Manual) Cancelled, Metamyelocytes % Cancelled, Myelocytes % Cancelled, Promyelocytes % Cancelled, Blast Cells % Cancelled, Plasma Cell % (Manual) Cancelled, Other Cells % Cancelled, Nucleated RBC % Cancelled, Nucleated RBCs/100 WBC Cancelled, Differential Comment Cancelled, Diff Path Review Cancelled, Hypersegmented Neuts Cancelled, Atypical Lymphocytes Cancelled, Reactive Lymphocytes Cancelled, Smudge Cells Cancelled, Toxic Granulation Cancelled, Toxic Vacuolation Cancelled, Dohle Bodies Cancelled, Shira Rods Cancelled, Platelet Estimate Cancelled, Plt Morphology Comment Cancelled, RBC Morphology Cancelled 12/21/24 03:08: RBC Morphology Cancelled, Polychromasia Cancelled, Hypochromasia Cancelled, Basophilic Stippling Cancelled, Anisocytosis Cancelled, Microcytosis Cancelled, Macrocytosis Cancelled, Spherocytes Cancelled, Sickle Cells Cancelled, Target Cells Cancelled, Tear Drop Cells Cancelled, Ovalocytes Cancelled, Stomatocytes Cancelled, Najera-Deshler Bodies Cancelled, Susie Cells Cancelled, Bite Cells Cancelled, Crenated Cell Cancelled, Acanthocytes (Spur) Cancelled, Rouleaux Cancelled, Schistocytes Cancelled, Sodium Cancelled, Potassium Cancelled, Chloride Cancelled, Carbon Dioxide Cancelled, Anion Gap Cancelled, BUN Cancelled, Creatinine Cancelled, Estim Creat Clear Calc Cancelled, Est GFR (MDRD) Non-Af Cancelled, BUN/Creatinine Ratio Cancelled, Glucose Cancelled, Calcium Cancelled, Total Bilirubin Cancelled, Direct Bilirubin Cancelled, AST Cancelled, ALT Cancelled, Alkaline Phosphatase Cancelled, Total Protein Cancelled, Albumin Cancelled, Globulin Cancelled, Triglycerides Cancelled, Cholesterol Cancelled, LDL Cholesterol, Calc Cancelled, VLDL Cholesterol Cancelled, HDL Cholesterol Cancelled, Cholesterol/HDL Ratio Cancelled, Lipase Cancelled, TSH Cancelled 12/21/24 03:16: POC Glucose < 10 L* 12/21/24 03:28: POC Glucose 151 H 12/21/24 05:15: WBC 25.5 H, RBC 4.07 L, Hgb 12.1, Hct 38.0, MCV 93.4 D, MCH 29.7, MCHC 31.8 L D, RDW Std Deviation 47.2 H, RDW Coeff of Patrice 13.7, Plt Count 57 L, MPV 12.6 H, Neut % (Auto) Not Reportable, Sodium 142, Potassium 3.4, Chloride 105, Carbon Dioxide 8.4 L*, Anion Gap 29 H, BUN 51 H, Creatinine 4.87 H, Estim Creat Clear Calc 10.33 L, Est GFR (MDRD) Non-Af 9 L, BUN/Creatinine Ratio 10.5, Glucose 89, Calcium 7.4 L, Total Bilirubin 5.73 H, Direct Bilirubin 4.49 H, AST 1482 H, ALT 879 H, Alkaline Phosphatase 477 H, Total Protein 5.0 L, Albumin 3.1 L, Globulin 1.9 L, Triglycerides 272 H, Cholesterol 111, LDL Cholesterol, Calc 45, VLDL Cholesterol 54 H, HDL Cholesterol 12 L, Cholesterol/HDL Ratio 9.57, Lipase 920 H, TSH 2.460, POC Glucose 85 Micro: Microbiology 12/20/24 23:20 Nasal Secretion MRSA (PCR) - Final 12/20/24 17:35 Mucosa - Nose SARS-CoV-2, Influenza & RSV (PCR) - Final ABG Data ABG results: ABG 12/21/24 02:10 Specimen Type ART Sample Site R Radial pH 7.30 L Bicarbonate Actual 15.2 L Total CO2 16 Base Excess -11 L O2 Saturation 93 L O2 % 30.0 ABG pCO2 31.1 L ABG pO2 72 L Mane Test Positive Respiration Rate 16 O2 Delivery Device Adult Vent Vent Mode AC Tidal Volume 450.0 POC PEEP 5 Rhythm Strip Rhythm Strip: A-fib Rate: 100 Ectopy: None Cardiology Labs/Tests 12/20/24 17:30: WBC 18.7 H, RBC 4.73, Hgb 14.2, Hct 41.2, MCV 87.1, MCH 30.0, MCHC 34.5, Plt Count 116 L, MPV 12.5 H, Immature Gran % (Auto) 2.100 H, Neut % (Auto) 94.8 H, Lymph % (Auto) 1.2 L, [place] % (Auto) 1.7, Eos % (Auto) 0.0, Baso % (Auto) 0.2, Absolute Neuts (auto) 17.7 H, Nucleated RBC % 0, Sodium 139, Potassium 3.4, Chloride 97 L, Carbon Dioxide 18.8 L, Anion Gap 23 H, BUN 49 H, Creatinine 3.97 H, Est GFR (MDRD) Non-Af 11 L, BUN/Creatinine Ratio 12.4, Glucose 75, Calcium 8.9, Total Bilirubin 5.85 H 12/20/24 18:20: Urine Color Cancelled, Urine Clarity Cancelled, Urine pH Cancelled, Ur Specific [place] Cancelled, U Specif Grav (Refrac) Cancelled, Urine Protein Cancelled, Urine Glucose (UA) Cancelled, Urine Ketones Cancelled, Urine Occult Blood Cancelled, Urine Nitrite Cancelled, Urine Bilirubin Cancelled, Urine Urobilinogen Cancelled, Ur Leukocyte Esterase Cancelled, Urine RBC Cancelled, Urine WBC Cancelled 12/20/24 19:18: Lactic Acid 6.6 H* 12/20/24 19:49: Phosphorus 2.5 L, Magnesium 1.5 12/20/24 22:29: PT 16.5 H, INR 1.3, APTT 26.5 12/20/24 23:45: Lactic Acid 6.4 H* 12/21/24 02:10: pH 7.30 L, Bicarbonate Actual 15.2 L, Base Excess -11 L, O2 Saturation 93 L, ABG pCO2 31.1 L, ABG pO2 72 L, Mane Test Positive 12/21/24 03:08: WBC Cancelled, Corrected WBC Cancelled, RBC Cancelled, Hgb Cancelled, Hct Cancelled, MCV Cancelled, MCH Cancelled, MCHC Cancelled, Plt Count Cancelled, MPV Cancelled, Immature Gran % (Auto) Cancelled, Neut % (Auto) Cancelled, Lymph % (Auto) Cancelled, [place] % (Auto) Cancelled, Eos % (Auto) Cancelled, Baso % (Auto) Cancelled, Absolute Neuts (auto) Cancelled, Total Counted Cancelled, Neutrophils % (Manual) Cancelled, Band Neutrophils % Cancelled, Lymphocytes % (Manual) Cancelled, Monocytes % (Manual) Cancelled, Eosinophils % (Manual) Cancelled, Basophils % (Manual) Cancelled, Metamyelocytes % Cancelled, Myelocytes % Cancelled, Promyelocytes % Cancelled, Blast Cells % Cancelled, Plasma Cell % (Manual) Cancelled, Other Cells % Cancelled, Nucleated RBC % Cancelled, Sodium Cancelled, Potassium Cancelled, Chloride Cancelled, Carbon Dioxide Cancelled, Anion Gap Cancelled, BUN Cancelled, Creatinine Cancelled, Est GFR (MDRD) Non-Af Cancelled, BUN/Creatinine Ratio Cancelled, Glucose Cancelled, Calcium Cancelled, Total Bilirubin Cancelled, Direct Bilirubin Cancelled, Triglycerides Cancelled, Cholesterol Cancelled, VLDL Cholesterol Cancelled, HDL Cholesterol Cancelled, Cholesterol/HDL Ratio Cancelled 12/21/24 05:15: WBC 25.5 H, RBC 4.07 L, Hgb 12.1, Hct 38.0, MCV 93.4 D, MCH 29.7, MCHC 31.8 L D, Plt Count 57 L, MPV 12.6 H, Neut % (Auto) Not Reportable, Sodium 142, Potassium 3.4, Chloride 105, Carbon Dioxide 8.4 L*, Anion Gap 29 H, BUN 51 H, Creatinine 4.87 H, Est GFR (MDRD) Non-Af 9 L, BUN/Creatinine Ratio 10.5, Glucose 89, Calcium 7.4 L, Total Bilirubin 5.73 H, Direct Bilirubin 4.49 H, Triglycerides 272 H, Cholesterol 111, VLDL Cholesterol 54 H, HDL Cholesterol 12 L, Cholesterol/HDL Ratio 9.57 Rhythm: EKG: ECHO: Stress Test: Cardiac Cath: PCI: CT Surgery: Holter monitor: EPS: PPM: CXR: Chest CT Scan: Radiography Diagnostic Testing: Radiology Impression Chest X-Ray 12/20/24 17:55 IMPRESSION: Findings suggestive of mild viral infection. 12 mm left upper lobe nodule which may represent a calcified granuloma. Recommend further evaluation with CT of the chest. Reading Location: [facility] Abdomen/Pelvis CT 12/20/24 18:35 IMPRESSION: 1. Distended gallbladder and cholelithiasis. 2. 24 mm common bile duct dilation secondary to a distal obstructing calculus, compatible with acute choledocholithiasis. 3. 20 x 16 mm low-attenuation lesion mid pancreatic body. No ductal dilation. Recommend further evaluation with MRCP. 4. Multiple pulmonary nodules, measuring between 7-[address] of the chest for further evaluation. Reading Location: [facility] Chest X-Ray 12/21/24 01:15 IMPRESSION: Endotracheal tube now present and is 2 cm above the brianna. A right IJ line is now seen with tip projecting at the area of the lower SVC. No pneumothorax or pleural effusion identified. Asymmetric left greater than right perihilar ill-defined opacities does lower zone predominance not significantly changed. No focal consolidation. Reading Location: [id number] X-Ray 12/21/24 01:15 IMPRESSION: Nasogastric tube tip projects at the area of the body of the stomach with side port at the proximal stomach. Reading Location: [facility] Brain CT 12/21/24 04:20 IMPRESSION: No intracranial hemorrhage, mass effect or CT evidence of large vascular territory acute infarct. 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 Reading Location: [facility]
[2024-12-21] MEDS: dexMEDEtomidine 400 MCG in 0.9% Normal Saline (100mL Bag) 96 ML 16.8 MCG CONT INF (08:30)
[2024-12-21 08:41] LABS: Base Excess -26 mmol/L (-2 to +2); Bicarbonate 6.1 mmol/L (22-26); Blood Gas Specimen Type ART; Mode AC; O2 Delivery Device Adult Vent; PEEP 5; PO2 82 mmHG (75-100); RR 16; SITE L Brach; SO2 86 % (95-99); Total Carbon Dioxide 7 mmol/L; pCO2 29.9 mmHg (35-45); pH 6.92 (7.35-7.45)
[2024-12-21] MEDS: Phenylephrine 40 mg/250 mL 0.9% NS 63.8 MG CONT INF ×2 (08:58→12:56)
[2024-12-21] MEDS: Pantoprazole Sodium 40 MG in 0.9% Normal Saline (100mL MB+) 100 ML 330 MG IV (09:08)
[2024-12-21] MEDS: Piperacil/Tazobactam 3.375 GM in 0.9% Normal Saline (50mL MB+) 50 ML IV (09:09)
[2024-12-21] MEDS: Sodium Bicarbonate 150 MEQ in Dextrose 5%-Water (1000mL Bag) 1,000 ML IV (09:11)
[2024-12-21 09:23] LABS: Bedside Glucose 152 mg/dL (74-106)
[2024-12-21 09:23] LABS: Bedside Glucose 35 mg/dL (74-106)
--- NOTE | 2024-12-21 09:29 | CASEMGMT ---
Addendum entered by Cassandra Hurtado 12/21/24 09:57: [facility] returns call and states that they only have Ami in their system and that they do not have any advance directives on file. Original Note: During ICU rounds, the general internist and physician leader states that the pt has the potential to code at any given moment and that there is not a HCPOA on file as the pt is estranged from her only biological family (sister). Pt lives with a friend (Ami) who is on file but is not currently answering the phone. See SW note. This RN TORRES called the pt's PCP (Lorenza Maddox @ [facility]) at this time. This RN CM called the office as well as the MD's nurse. Neither answered. VM left. TORRES and ZAKIYA to follow.
[2024-12-21 09:42] LABS: Lymphocyte 3 % (19-41); Metamyelocyte 8 % (0-1); Monocyte 3 % (0-10); Myelocyte 4 % (0-0); Neutrophil-Band 6 % (0-5); Neutrophil-Segmented 72 % (47-70); Promyelocyte 4 % (0-0); Total Cells Counted 100 (MANUAL DIFF)
[2024-12-21 09:43] LABS: Ovalocyte 1+; Platelet Estimate MOD DEC (ADEQ)
[2024-12-21 09:44] LABS: Absolute Neutrophil Count 19.9 X10^3/uL (2.0-7.7)
[2024-12-21 09:45] LABS: Absolute Lymphocyte Count 0.77 X10^3/uL (0.83-4.51)
[2024-12-21 09:56] LABS: Pathologist Review May foll
--- NOTE | 2024-12-21 10:19 | CASEMGMT ---
Addendum entered by Otilia Cedeño 12/21/24 16:05: Ronn provided the name of pt sister, Candi Muniz. ZAKIYA verified an address [address] and phone number [phone] from records. ZAKIYA called non-emergency police and requested assistance in locating pt sister for decision making purposes as pt is reported by medical staff to be end-of-life. ZAKIYA requests police have sister make direct contact with ICU floor. ZAKIYA updated bedside nurse and RNCM. ZAKIYA remains available to follow. DALI Garcia Addendum entered by Otilia Cedeño 12/21/24 15:29: ZAKIYA reached out to Ami and left a voicemail. ZAKIYA reached out to Ami who reports that she is on her way into [facility] and will meet with ZAKIYA at that time. ZAKIYA remains available to follow. ZAKIYA called [employer] to inquire into if pt had previously been a client; pt had no involvement with [employer] previously. DALI Garcia Original Note: Social Work- ZAKIYA received notice that pt has medically declined and physician requests attempts to find family be made. It is noted in the H & P that pt has no biological family except one sister whom she has not had contact with for decades. The sister's name is not listed. Pt has portions of a living will scanned into the chart, but only the front sides of the document totaling 5 pages, but not including any information on wishes or contacts. ZAKIYA called pt friend Ami twice, left voice mails requesting a return call. ZAKIYA called neurologist office; no additional information. RNCM called PCP office; no additional information. It is noted in prior documentation from 02/20/17 that pt great grandmother raised pt and pt is unaware of any family hx. ZAKIYA coordinated with ZAKIYA supervisor in circuit testing on collaboration for care. ZAKIYA updated bedside nurse. ZAKIYA remains available to follow. DALI Garcia
[2024-12-21 10:24] LABS: International Normalized Ratio 2.4; Prothrombin Time (Protime)PT. 26.9 SECONDS (11.7-14.9)
[2024-12-21 10:25] LABS: Partial Thromboplast Time 58.9 Seconds (24.1-36.2)
[2024-12-21] MEDS: Dextrose 10%-Water 250 ML 80 ML IV ×2 (10:41→13:52)
[2024-12-21] MEDS: Donepezil HCl 10 MG Tablet PO (10:41)
--- NOTE | 2024-12-21 10:55 | CON.PCM.SX_ITS ---
Assessment & Plan Assessment/Plan (1) Septic shock: (2) Biliary obstruction: PLAN: Plan The patient is a 74-year-old female who presents with severe sepsis, acute renal failure, respiratory failure, possible TN and choledocholithiasis. Patient is currently on 3 pressors and remains profoundly acidotic. She has a very grim prognosis. Ideally if she could be stabilized, she could potentially benefit from an ERCP to relieve her bile duct duct obstruction/cholangitis. At this point she remains basically too unstable to even undergo anesthesia for ERCP. At this point I would not advise cholecystectomy even in the near future given presumed TN. Will continue to follow. Continue management per medicine/ICU teams in hopes. HPI Consult Data Date of Consult: 12/21/24 HPI Narrative Reason for Consultation: Sepsis and choledocholithiasis HPI Narrative: The patient is a 74-year-old female with past medical history of hypertension, obesity, hyperlipidemia, pulmonary hypertension as well as sarcoidosis. She also has respiratory failure. She presented to the emergency department yesterday with intractable nausea and confusion over the last several days. Apparently she has dementia and lives in a friend's basement. Due to worsening mental status, she was brought to the emergency room for evaluation. She was seen evaluate by the ER staff. Blood work revealed a white blood cell count of 18.7. She had a greatly elevated BUN and creatinine. Her bilirubin was approaching 6. Alkaline phosphatase was also elevated. Lipase was 879. Lactate was 6.6. Her troponins were also elevated. She underwent a CT scan of the abdomen pelvis that showed a distended gallbladder with gallstones. Her common bile duct measured 24 mm which is quite distended and was associated with a probable common bile duct stone. Patient was subsequently admitted to the ICU. Overnight she was intubated and is currently on 3 separate pressors and remains quite acidotic as well. GI was consulted as well as general surgery. [facility] Medical History Chronic hypoxic respiratory failure, on home oxygen therapy CKD (chronic kidney disease), stage II Dementia Tear of meniscus of right knee HTN (hypertension) Pulmonary sarcoidosis Chronic fatigue Obesity Cardiomegaly Degenerative joint disease of knee Pulmonary hypertension, secondary Hyperlipidemia Abnormality of gait and mobility Home Medications ?Medication ?Instructions ?Recorded ?Last Taken ?Type simvastatin 20 mg tablet (Zocor) 20 mg PO QPM 08/13/17 Unknown History Disability Placard #1 ea 11/11/23 Unknown Rx albuterol sulfate 90 mcg/actuation 2 puff inhalation Q 6H PRN 11/22/23 Unknown Rx aerosol inhaler (ProAir HFA) shortness of breath or wh eezing #18 grams donepezil 10 mg tablet 10 mg PO QDAY 11/22/23 Unkno wn History hydrochlorothiazide 25 mg tablet 25 mg PO QDAY 4 Unknown History potassium chloride 10 mEq 10 meq PO BID 11/22/23 Unkno wn History tablet,extended release fluticasone propionate 230 2 inh inhalation BID #3 ea 11/26/23 Unknown Rx mcg-salmeterol 21 mcg/actuation HFA inhaler (Advair HFA) mirtazapine 7.5 mg tablet 7.5 mg PO QHS #30 tabs 12/14 Unknown Rx Allergy/AdvReac Type Severity Reaction Status Date / Time No Known Allergies Allergy Verified 12/20/24 15:38 Family History Mother No problems noted. Father No problems noted. Family History no significant family his Surgical History History of arthroscopy of both knees right axillary lymph node removal Social History household members: friend(s) current occupational status: retired pets and animals: No Smoking Status: Never smoker second hand exposure: Yes alcohol intake: never substance use type: does not use caffeine: Yes Type: carbonated beverages do you feel safe at home: Yes ROS Review of Systems ROS Unobtainable: due to endotracheal tube Physical Exam Narrative Patient sedated and on ventilator. She appears comfortable and not in any distress or agitation Abdomen is soft and obese. No significant grimace at present time with palpation. Overall patient appears somewhat mottled in appearance Lab / Micro Data 12/21/24 05:15 12/21/24 05:15 Labs: Laboratory Results - last 24 hr 12/20/24 17:30: WBC 18.7 H, RBC 4.73, Hgb 14.2, Hct 41.2, MCV 87.1, MCH 30.0, MCHC 34.5, RDW Std Deviation 41.6, RDW Coeff of Patrice 13.1, Plt Count 116 L, MPV 12.5 H, Immature Gran % (Auto) 2.100 H, Neut % (Auto) 94.8 H, Lymph % (Auto) 1.2 L, Foster % (Auto) 1.7, Eos % (Auto) 0.0, Baso % (Auto) 0.2, Absolute Neuts (auto) 17.7 H, Absolute Lymphs (auto) 0.23 L, Nucleated RBC % 0, Platelet Estimate MOD DEC, RBC Morphology NORM C+C, Sodium 139, Potassium 3.4, Chloride 97 L, Carbon Dioxide 18.8 L, Anion Gap 23 H, BUN 49 H, Creatinine 3.97 H, Estim Creat Clear Calc 12.63 L, Est GFR (MDRD) Non-Af 11 L, BUN/Creatinine Ratio 12.4, Glucose 75, Calcium 8.9, Total Bilirubin 5.85 H, AST 120 H, ALT 141 H, Alkaline Phosphatase 326 H, Troponin T High Sens 499 H*, Total Protein 6.4, Albumin 3.6, Globulin 2.8, Albumin/Globulin Ratio 1.3, Lipase 879 H, TSH 3.090 12/20/24 18:20: Urine Color Cancelled, Urine Clarity Cancelled, Urine pH Cancelled, Ur Specific [place] Cancelled, U Specif Grav (Refrac) Cancelled, Urine Protein Cancelled, Urine Glucose (UA) Cancelled, Urine Ketones Cancelled, Urine Occult Blood Cancelled, Urine Nitrite Cancelled, Urine Bilirubin Cancelled, Urine Urobilinogen Cancelled, Ur Leukocyte Esterase Cancelled, Urine RBC Cancelled, Urine WBC Cancelled, Ur Squamous Epith Cells Cancelled, Ur Transition Epith Cell Cancelled, Ur Renal Epithelial Cell Cancelled, Calcium Oxalate Crystal Cancelled, Uric Acid Crystals Cancelled, Triple Phos Crystals Cancelled, Other Crystals Cancelled, Amorphous Sediment Cancelled, Urine Bacteria Cancelled, Hyaline Casts Cancelled, Fine Granular Casts Cancelled, Coarse Granular Casts Cancelled, Waxy Casts Cancelled, RBC Casts Cancelled, WBC Casts Cancelled, Urine Mucus Cancelled, Urine Trichomonas Cancelled, Urine Yeast Cancelled 12/20/24 19:18: Lactic Acid 6.6 H* 12/20/24 19:49: Phosphorus 2.5 L, Magnesium 1.5, Troponin T Hi Sens 2 Hr 523 H* 12/20/24 22:29: PT 16.5 H, INR 1.3, APTT 26.5 12/20/24 23:25: Troponin T Hi Sens 4Hr 612 H* 12/20/24 23:45: Lactic Acid 6.4 H* 12/21/24 03:08: WBC Cancelled, Corrected WBC Cancelled, RBC Cancelled, Hgb Cancelled, Hct Cancelled, MCV Cancelled, MCH Cancelled, MCHC Cancelled, RDW Std Deviation Cancelled, RDW Coeff of Patrice Cancelled, Plt Count Cancelled, MPV Cancelled, Immature Gran % (Auto) Cancelled, Neut % (Auto) Cancelled, Lymph % (Auto) Cancelled, Foster % (Auto) Cancelled, Eos % (Auto) Cancelled, Baso % (Auto) Cancelled, Absolute Neuts (auto) Cancelled, Absolute Lymphs (auto) Cancelled, Total Counted Cancelled, Neutrophils % (Manual) Cancelled, Band Neutrophils % Cancelled, Lymphocytes % (Manual) Cancelled, Monocytes % (Manual) Cancelled, Eosinophils % (Manual) Cancelled, Basophils % (Manual) Cancelled, Metamyelocytes % Cancelled, Myelocytes % Cancelled, Promyelocytes % Cancelled, Blast Cells % Cancelled, Plasma Cell % (Manual) Cancelled, Other Cells % Cancelled, Nucleated RBC % Cancelled, Nucleated RBCs/100 WBC Cancelled, Differential Comment Cancelled, Diff Path Review Cancelled, Hypersegmented Neuts Cancelled, Atypical Lymphocytes Cancelled, Reactive Lymphocytes Cancelled, Smudge Cells Cancelled, Toxic Granulation Cancelled, Toxic Vacuolation Cancelled, Dohle Bodies Cancelled, Shira Rods Cancelled, Platelet Estimate Cancelled, Plt Morphology Comment Cancelled, RBC Morphology Cancelled 12/21/24 03:08: RBC Morphology Cancelled, Polychromasia Cancelled, Hypochromasia Cancelled, Basophilic Stippling Cancelled, Anisocytosis Cancelled, Microcytosis Cancelled, Macrocytosis Cancelled, Spherocytes Cancelled, Sickle Cells Cancelled, Target Cells Cancelled, Tear Drop Cells Cancelled, Ovalocytes Cancelled, Stomatocytes Cancelled, [place] Bodies Cancelled, [place] Cells Cancelled, Bite Cells Cancelled, Crenated Cell Cancelled, Acanthocytes (Spur) Cancelled, Rouleaux Cancelled, Schistocytes Cancelled, Sodium Cancelled, Potassium Cancelled, Chloride Cancelled, Carbon Dioxide Cancelled, Anion Gap Cancelled, BUN Cancelled, Creatinine Cancelled, Estim Creat Clear Calc Cancelled, Est GFR (MDRD) Non-Af Cancelled, BUN/Creatinine Ratio Cancelled, Glucose Cancelled, Calcium Cancelled, Total Bilirubin Cancelled, Direct Bilirubin Cancelled, AST Cancelled, ALT Cancelled, Alkaline Phosphatase Cancelled, Total Protein Cancelled, Albumin Cancelled, Globulin Cancelled, Triglycerides Cancelled, Cholesterol Cancelled, LDL Cholesterol, Calc Cancelled, VLDL Cholesterol Cancelled, HDL Cholesterol Cancelled, Cholesterol/HDL Ratio Cancelled, Lipase Cancelled, TSH Cancelled 12/21/24 03:16: POC Glucose < 10 L* 12/21/24 03:28: POC Glucose 151 H 12/21/24 05:15: WBC 25.5 H, RBC 4.07 L, Hgb 12.1, Hct 38.0, MCV 93.4 D, MCH 29.7, MCHC 31.8 L D, RDW Std Deviation 47.2 H, RDW Coeff of Patrice 13.7, Plt Count 57 L, MPV 12.6 H, Neut % (Auto) Not Reportable, Absolute Neuts (auto) 19.9 H, A bsolute Lymphs (auto) 0.77 L, Total Counted 100, Neutrophils % (Manual) 72 H, B and Neutrophils % 6 H, Lymphocytes % (Manual) 3 L, Monocytes % (Manual) 3, M etamyelocytes % 8 H, Myelocytes % 4 H, Promyelocytes % 4 H, Diff Path Review December gregg, Platelet Estimate MOD DEC, Ovalocytes 1+, Sodium 142, Potassium 3.4, Chloride 105, Carbon Dioxide 8.4 L*, Anion Gap 29 H, BUN 51 H, Creatinine 4.87 H , Estim Creat Clear Calc 10.33 L, Est GFR (MDRD) Non-Af 9 L, BUN/Creatinine Ratio 10.5, Glucose 89, Calcium 7.4 L, Total Bilirubin 5.73 H, Direct Bilirubin 4.49 H, AST 1482 H, ALT 879 H, Alkaline Phosphatase 477 H, Total Protein 5.0 L, Albumin 3.1 L, Globulin 1.9 L, Triglycerides 272 H, Cholesterol 111, LDL Cholesterol, Calc 45, VLDL Cholesterol 54 H, HDL Cholesterol 12 L, Cholesterol/HDL Ratio 9.57, Lipase 920 H, TSH 2.460, POC Glucose 85 12/21/24 08:10: POC Glucose 35 L* 12/21/24 09:04: POC Glucose 152 H 12/21/24 09:55: PT 26.9 H, INR 2.4, APTT 58.9 H Micro: Microbiology 12/20/24 23:20 Nasal Secretion MRSA (PCR) - Final 12/20/24 17:35 Mucosa - Nose SARS-CoV-2, Influenza & RSV (PCR) - Final ABG Data ABG results: ABG 12/21/24 12/21/24 02:10 08:36 Specimen Type ART ART Sample Site R Radial L Brach pH 7.30 L 6.92 L* Bicarbonate Actual 15.2 L 6.1 L Total CO2 16 7 Base Excess -11 L -26 L O2 Saturation 93 L 86 L O2 % 30.0 30.0 ABG pCO2 31.1 L 29.9 L ABG pO2 72 L 82 Mane Test Positive Respiration Rate 16 16 O2 Delivery Device Adult Vent Adult Vent Vent Mode AC AC Tidal Volume 450.0 450.0 POC PEEP 5 5 Crit Call To/Read Back Yes Blood Gas Notified Whom BROWN Blood Gas Notified Time 08:37:58 Rhythm Strip Rhythm Strip: A-fib Rate: 100 Ectopy: None Imaging Radiology Impression Chest X-Ray 12/20/24 17:55 IMPRESSION: Findings suggestive of mild viral infection. 12 mm left upper lobe nodule which may represent a calcified granuloma. Recommend further evaluation with CT of the chest. Reading Location: [facility] [place] Abdomen/Pelvis CT 12/20/24 18:35 IMPRESSION: 1. Distended gallbladder and cholelithiasis. 2. 24 mm common bile duct dilation secondary to a distal obstructing calculus, compatible with acute choledocholithiasis. 3. 20 x 16 mm low-attenuation lesion mid pancreatic body. No ductal dilation. Recommend further evaluation with MRCP. 4. Multiple pulmonary nodules, measuring between 7-[address] of the chest for further evaluation. Reading Location: [facility] [place] Chest X-Ray 12/21/24 01:15 IMPRESSION: Endotracheal tube now present and is 2 cm above the brianna. A right IJ line is now seen with tip projecting at the area of the lower SVC. No pneumothorax or pleural effusion identified. Asymmetric left greater than right perihilar ill-defined opacities does lower zone predominance not significantly changed. No focal consolidation. Reading Location: [id number] X-Ray 12/21/24 01:15 IMPRESSION: Nasogastric tube tip projects at the area of the body of the stomach with side port at the proximal stomach. Reading Location: [id number] Brain CT 12/21/24 04:20 IMPRESSION: No intracranial hemorrhage, mass effect or CT evidence of large vascular territory acute infarct. The nasogastric tube forms a loop into the nasopharynx as appreciated on the dirt shoveler image and sagittal 33 for example . Reading Location: [id number]
--- NOTE | 2024-12-21 11:35 | PCM.CONS.R ---
Assessment & Plan Assessment/Plan (1) Acute kidney injury: (2) Acute lactic acidosis: (3) Acute hypoxic respiratory failure: PLAN: Plan This is a 74-year-old female with past medical history significant for hypertension, hyperlipidemia, pulmonary hypertension, pulmonary sarcoidosis with chronic hypoxic respiratory failure on 2 L nasal cannula admitted to ICU for septic shock related to acute choledocholithiasis associated with acute pancreatitis. General surgery consulted. Nephrology consulted in view of JAMAL, metabolic acidosis. Serum creatinine 3.9 on admission, today creatinine 4.87. Bicarb was 18.8 on admission, now 8.4, lactic acid 6.4. Potassium is normal. Appears patient has normal baseline serum creatinine trends. Noncontrast CT A/P no hydronephrosis. Patient has indwelling Lerma with very scant to almost anuric. Patient is near maxed out on 3 pressors. Likely patient is heading towards needing renal placement therapy but due to hemodynamic instability she is not a candidate for CRRT at present time. pre-renal JAMAL likely secondary to ATN from septic shock. Patient is on bicarb drip and pressors. Reviewed patient's home medication list, no recent MILAGROS or ARB's. She was on hydrochlorothiazide, this is on hold. Will continue to follow patient closely. Patient does not have formal POA, apparently she has a sister in which she has not had contact with in some time. Patient had been living with a friend (who is not family nor POA). Assessment and plan reviewed with Dr. Patton HPI Consult Data Date of Consult: 12/21/24 HPI Narrative HPI Narrative: CHRISTINE VAUGHAN, is a 74 F with past medical history significant for hypertension, hyperlipidemia, pulmonary hypertension, pulmonary sarcoidosis with chronic hypoxic respiratory failure on 2 L nasal cannula who was brought to the emergency room for increased confusion. Workup in the emergency room included CT abdomen pelvis which showed distended gallbladder, cholelithiasis, common bile duct dilatation secondary to distal obstructing calculus compatible with acute choledocholithiasis, patient was also noted to be in A-fib with RVR received diltiazem bolus. Blood pressure initially upon presentation to ER 142/91. In ER patient was successfully cardioverted but unfortunately respiratory status worsened, she became hyppotensive and patient was intubated in ER. Patient was admitted to ICU for acute sepsis related to gallstone pancreatitis, JAMAL, A-fib. Nephrology consulted in view of elevated creatinine and acidosis. Patient is on ventilator support. Information gathered from chart. Patient is on 3 pressors. Creatinine today 4.87, carbon dioxide 8.4, potassium 3.4, lactic acid 6.4. [facility] Medical History Chronic hypoxic respiratory failure, on home oxygen therapy CKD (chronic kidney disease), stage II Dementia Tear of meniscus of right knee HTN (hypertension) Pulmonary sarcoidosis Chronic fatigue Obesity Cardiomegaly Degenerative joint disease of knee Pulmonary hypertension, secondary Hyperlipidemia Abnormality of gait and mobility Home Medications ?Medication ?Instructions ?Recorded ?Last Taken ?Type simvastatin 20 mg tablet (Zocor) 20 mg PO QPM 08/13/17 Unknown History Disability Placard #1 ea 11/11/23 Unknown Rx albuterol sulfate 90 mcg/actuation 2 puff inhalation Q6H PRN 11/22/23 Unknown Rx aerosol inhaler (ProAir HFA) shortness of breath or wheezing #18 grams donepezil 10 mg tablet 10 mg PO QDAY 11/22/23 Unknown History hydrochlorothiazide 25 mg tablet 25 mg PO QDAY 11/22/23 Unknown History potassium chloride 10 mEq 10 meq PO BID 11/22/23 Unknown History tablet,extended release fluticasone propionate 230 2 inh inhalation BID #3 ea 11/26/23 Unknown Rx mcg-salmeterol 21 mcg/actuation HFA inhaler (Advair HFA) mirtazapine 7.5 mg tablet 7.5 mg PO QHS #30 tabs 12/14/24 Unknown Rx Allergy/AdvReac Type Severity Reaction Status Date / Time No Known Allergies Allergy Verified 12/20/24 15:38 Family History Mother No problems noted. Father No problems noted. Family History no significant family his Surgical History History of arthroscopy of both knees right axillary lymph node removal Social History household members: friend(s) current occupational status: retired pets and animals: No Smoking Status: Never smoker second hand exposure: Yes alcohol intake: never substance use type: does not use caffeine: Yes Type: carbonated beverages do you feel safe at home: Yes ROS ROS Narrative Unable to obtain, patient on ventilator support Physical Exam Narrative No apparent distress On ventilator S1, S2, rhythm regular Breath sounds clear anteriorly Abdomen soft No pitting edema Indwelling Elrma with scant yellow urine noted in tubing Lab / Micro Data 12/21/24 05:15 12/21/24 05:15 Labs: Laboratory Results - last 24 hr 12/20/24 17:30: WBC 18.7 H, RBC 4.73, Hgb 14.2, Hct 41.2, MCV 87.1, MCH 30.0, MCHC 34.5, RDW Std Deviation 41.6, RDW Coeff of Patrice 13.1, Plt Count 116 L, MPV 12.5 H, Immature Gran % (Auto) 2.100 H, Neut % (Auto) 94.8 H, Lymph % (Auto) 1.2 L, Barren % (Auto) 1.7, Eos % (Auto) 0.0, Baso % (Auto) 0.2, Absolute Neuts (auto) 17.7 H, Absolute Lymphs (auto) 0.23 L, Nucleated RBC % 0, Platelet Estimate MOD DEC, RBC Morphology NORM C+C, Sodium 139, Potassium 3.4, Chloride 97 L, Carbon Dioxide 18.8 L, Anion Gap 23 H, BUN 49 H, Creatinine 3.97 H, Estim Creat Clear Calc 12.63 L, Est GFR (MDRD) Non-Af 11 L, BUN/Creatinine Ratio 12.4, Glucose 75, Calcium 8.9, Total Bilirubin 5.85 H, AST 120 H, ALT 141 H, Alkaline Phosphatase 326 H, Troponin T High Sens 499 H*, Total Protein 6.4, Albumin 3.6, Globulin 2.8, Albumin/Globulin Ratio 1.3, Lipase 879 H, TSH 3.090 12/20/24 18:20: Urine Color Cancelled, Urine Clarity Cancelled, Urine pH Cancelled, Ur Specific [place] Cancelled, U Specif Grav (Refrac) Cancelled, Urine Protein Cancelled, Urine Glucose (UA) Cancelled, Urine Ketones Cancelled, Urine Occult Blood Cancelled, Urine Nitrite Cancelled, Urine Bilirubin Cancelled, Urine Urobilinogen Cancelled, Ur Leukocyte Esterase Cancelled, Urine RBC Cancelled, Urine WBC Cancelled, Ur Squamous Epith Cells Cancelled, Ur Transition Epith Cell Cancelled, Ur Renal Epithelial Cell Cancelled, Calcium Oxalate Crystal Cancelled, Uric Acid Crystals Cancelled, Triple Phos Crystals Cancelled, Other Crystals Cancelled, Amorphous Sediment Cancelled, Urine Bacteria Cancelled, Hyaline Casts Cancelled, Fine Granular Casts Cancelled, Coarse Granular Casts Cancelled, Waxy Casts Cancelled, RBC Casts Cancelled, WBC Casts Cancelled, Urine Mucus Cancelled, Urine Trichomonas Cancelled, Urine Yeast Cancelled 12/20/24 19:18: Lactic Acid 6.6 H* 12/20/24 19:49: Phosphorus 2.5 L, Magnesium 1.5, Troponin T Hi Sens 2 Hr 523 H* 12/20/24 22:29: PT 16.5 H, INR 1.3, APTT 26.5 12/20/24 23:25: Troponin T Hi Sens 4Hr 612 H* 12/20/24 23:45: Lactic Acid 6.4 H* 12/21/24 03:08: WBC Cancelled, Corrected WBC Cancelled, RBC Cancelled, Hgb Cancelled, Hct Cancelled, MCV Cancelled, MCH Cancelled, MCHC Cancelled, RDW Std Deviation Cancelled, RDW Coeff of Patrice Cancelled, Plt Count Cancelled, MPV Cancelled, Immature Gran % (Auto) Cancelled, Neut % (Auto) Cancelled, Lymph % (Auto) Cancelled, Barren % (Auto) Cancelled, Eos % (Auto) Cancelled, Baso % (Auto) Cancelled, Absolute Neuts (auto) Cancelled, Absolute Lymphs (auto) Cancelled, Total Counted Cancelled, Neutrophils % (Manual) Cancelled, Band Neutrophils % Cancelled, Lymphocytes % (Manual) Cancelled, Monocytes % (Manual) Cancelled, Eosinophils % (Manual) Cancelled, Basophils % (Manual) Cancelled, Metamyelocytes % Cancelled, Myelocytes % Cancelled, Promyelocytes % Cancelled, Blast Cells % Cancelled, Plasma Cell % (Manual) Cancelled, Other Cells % Cancelled, Nucleated RBC % Cancelled, Nucleated RBCs/100 WBC Cancelled, Differential Comment Cancelled, Diff Path Review Cancelled, Hypersegmented Neuts Cancelled, Atypical Lymphocytes Cancelled, Reactive Lymphocytes Cancelled, Smudge Cells Cancelled, Toxic Granulation Cancelled, Toxic Vacuolation Cancelled, Dohle Bodies Cancelled, Shira Rods Cancelled, Platelet Estimate Cancelled, Plt Morphology Comment Cancelled, RBC Morphology Cancelled 12/21/24 03:08: RBC Morphology Cancelled, Polychromasia Cancelled, Hypochromasia Cancelled, Basophilic Stippling Cancelled, Anisocytosis Cancelled, Microcytosis Cancelled, Macrocytosis Cancelled, Spherocytes Cancelled, Sickle Cells Cancelled, Target Cells Cancelled, Tear Drop Cells Cancelled, Ovalocytes Cancelled, Stomatocytes Cancelled, [place] Bodies Cancelled, Susie Cells Cancelled, Bite Cells Cancelled, Crenated Cell Cancelled, Acanthocytes (Spur) Cancelled, Rouleaux Cancelled, Schistocytes Cancelled, Sodium Cancelled, Potassium Cancelled, Chloride Cancelled, Carbon Dioxide Cancelled, Anion Gap Cancelled, BUN Cancelled, Creatinine Cancelled, Estim Creat Clear Calc Cancelled, Est GFR (MDRD) Non-Af Cancelled, BUN/Creatinine Ratio Cancelled, Glucose Cancelled, Calcium Cancelled, Total Bilirubin Cancelled, Direct Bilirubin Cancelled, AST Cancelled, ALT Cancelled, Alkaline Phosphatase Cancelled, Total Protein Cancelled, Albumin Cancelled, Globulin Cancelled, Triglycerides Cancelled, Cholesterol Cancelled, LDL Cholesterol, Calc Cancelled, VLDL Cholesterol Cancelled, HDL Cholesterol Cancelled, Cholesterol/HDL Ratio Cancelled, Lipase Cancelled, TSH Cancelled 12/21/24 03:16: POC Glucose < 10 L* 12/21/24 03:28: POC Glucose 151 H 12/21/24 05:15: WBC 25.5 H, RBC 4.07 L, Hgb 12.1, Hct 38.0, MCV 93.4 D, MCH 29.7, MCHC 31.8 L D, RDW Std Deviation 47.2 H, RDW Coeff of Patrice 13.7, Plt Count 57 L, MPV 12.6 H, Neut % (Auto) Not Reportable, Absolute Neuts (auto) 19.9 H, Absolute Lymphs (auto) 0.77 L, Total Counted 100, Neutrophils % (Manual) 72 H, Band Neutrophils % 6 H, Lymphocytes % (Manual) 3 L, Monocytes % (Manual) 3, Metamyelocytes % 8 H, Myelocytes % 4 H, Promyelocytes % 4 H, Diff Path Review December foll, Platelet Estimate MOD DEC, Ovalocytes 1+, Sodium 142, Potassium 3.4, Chloride 105, Carbon Dioxide 8.4 L*, Anion Gap 29 H, BUN 51 H, Creatinine 4.87 H, Estim Creat Clear Calc 10.33 L, Est GFR (MDRD) Non-Af 9 L, BUN/Creatinine Ratio 10.5, Glucose 89, Calcium 7.4 L, Total Bilirubin 5.73 H, Direct Bilirubin 4.49 H, AST 1482 H, ALT 879 H, Alkaline Phosphatase 477 H, Total Protein 5.0 L, Albumin 3.1 L, Globulin 1.9 L, Triglycerides 272 H, Cholesterol 111, LDL Cholesterol, Calc 45, VLDL Cholesterol 54 H, HDL Cholesterol 12 L, Cholesterol/HDL Ratio 9.57, Lipase 920 H, TSH 2.460, POC Glucose 85 12/21/24 08:10: POC Glucose 35 L* 12/21/24 09:04: POC Glucose 152 H 12/21/24 09:55: PT 26.9 H, INR 2.4, APTT 58.9 H Micro: Microbiology 12/21/24 02:20 Sputum, Induced/Lukens Gram Stain - Final 12/20/24 23:20 Nasal Secretion MRSA (PCR) - Final 12/20/24 17:35 Mucosa - Nose SARS-CoV-2, Influenza & RSV (PCR) - Final ABG Data ABG results: ABG 12/21/24 12/21/24 02:10 08:36 Specimen Type ART ART Sample Site R Radial L Brach pH 7.30 L 6.92 L* Bicarbonate Actual 15.2 L 6.1 L Total CO2 16 7 Base Excess -11 L -26 L O2 Saturation 93 L 86 L O2 % 30.0 30.0 ABG pCO2 31.1 L 29.9 L ABG pO2 72 L 82 Mane Test Positive Respiration Rate 16 16 O2 Delivery Device Adult Vent Adult Vent Vent Mode AC AC Tidal Volume 450.0 450.0 POC PEEP 5 5 Crit Call To/Read Back Yes Blood Gas Notified Whom BROWN Blood Gas Notified Time 08:37:58 Rhythm Strip Rhythm Strip: A-fib Rate: 100 Ectopy: None Imaging Radiology Impression Chest X-Ray 12/20/24 17:55 IMPRESSION: Findings suggestive of mild viral infection. 12 mm left upper lobe nodule which may represent a calcified granuloma. Recommend further evaluation with CT of the chest. [facility]/Pelvis CT 12/20/24 18:35 IMPRESSION: 1. Distended gallbladder and cholelithiasis. 2. 24 mm common bile duct dilation secondary to a distal obstructing calculus, compatible with acute choledocholithiasis. 3. 20 x 16 mm low-attenuation lesion mid pancreatic body. No ductal dilation. Recommend further evaluation with MRCP. 4. Multiple pulmonary nodules, measuring between 7-[address] of the chest for further evaluation. Reading [facility] Chest X-Ray 12/21/24 01:15 IMPRESSION: Endotracheal tube now present and is 2 cm above the brianna. A right IJ line is now seen with tip projecting at the area of the lower SVC. No pneumothorax or pleural effusion identified. Asymmetric left greater than right perihilar ill-defined opacities does lower zone predominance not significantly changed. No focal consolidation. Reading Location: [id number] X-Ray 12/21/24 01:15 IMPRESSION: Nasogastric tube tip projects at the area of the body of the stomach with side port at the proximal stomach. Reading Location: [id number] Brain CT 12/21/24 04:20 IMPRESSION: No intracranial hemorrhage, mass effect or CT evidence of large vascular territory acute infarct. The nasogastric tube forms a loop into the nasopharynx as appreciated on the charge nurse image and sagittal 33 for example . Reading Location: [id number]
[2024-12-21 12:46] LABS: Bedside Glucose 44 mg/dL (74-106)
[2024-12-21 12:47] LABS: Bedside Glucose 47 mg/dL (74-106)
[2024-12-21] MEDS: Heparin Injection (Vial) 5,000 UNIT/ML VIAL 5000 UNIT SC (13:17)
[2024-12-21] MEDS: fentaNYL drip 100 ML 7.5 MCG CONT INF (13:28)
--- NOTE | 2024-12-21 14:02 | CHAPLAIN ---
Type of Pastoral Visit _x__ Initial Visit ___ Follow-up Visit ___ On-call Visit ___ General Patient Visit ___ Spiritual Assessment ___ Family Conference ___ Bereavement ___ Rapid Response ___ Code Blue ___ Other (describe below) Pastoral Care Referral From ___ Patient ___ Family _x__ Nurse ___ Physician ___ Swatch Maker ___ Pull Tab Dealer ___ Other (describe below) Sacrament/Intervention ___ Active listening ___ Anointing ___ Congregation ___ Bereavement ___ Communion ___ Sarah exploration ___ ___ Life review _x__ Prayer ___ Reconciliation ___ Sacrament of Sick _x__ Supportive presence ___ Wedding ___ Other (describe below) Pastoral Comments patient is declining and may be coming to the end of life; pt is on the ventilator and is unable to speak; pt has had a friend visit but is not present at this time; pt is estranged from family per knowledge of the hospital; supportive presence and prayer is given to the patient; a calling card is left for anyone who may follow up with the patient
[2024-12-21 15:53] LABS: Bedside Glucose 176 mg/dL (74-106)
--- NOTE | 2024-12-21 16:07 | NURSING ---
Patient's sister, Candi Muniz, called into ICU and spoke with this RN. This RN explained patient's medical condition and blood pressure medications keeping patient alive. Discussed POC options, including comfort measures for end-of-life. Candi in aggreeance to change code status and make patient comfortable. Dr. Wetzel aware of decision and placing orders.
--- NOTE | 2024-12-21 16:14 | NURSING ---
Candi Muniz, patient's sister, planning to come see her and will wait to withdraw care until sister at bedside
--- NOTE | 2024-12-21 16:48 | CPS ---
CARE WAS WITHDRAWN PER FAMILY
--- NOTE | 2024-12-21 16:51 | NURSING ---
extubated patient at 1645, Ami, teddy, at bedside.
--- NOTE | 2024-12-21 17:38 | PCM.DEATH ---
Preliminary Cause of Preliminary Cause of Preliminary Cause of : Septic shock. Cholangitis. Date of Admission: 12/20/24 Date of : 12/21/24 (1530) Principle Diagnosis Problem List: Active and Suspected Problems (Updated 12/21/24 @ 07:[address] Patrick Wetzel, DO) Hypoglycemia (Acute) Acute hypoxic respiratory failure (Acute) Septic shock (Acute) Mass of pancreas (Acute) Acute hypotension (Acute) Acute lactic acidosis (Acute) Non-ST elevated myocardial infarction (Acute) Leukocytosis (Acute) Acute kidney injury (Acute) Acute dehydration (Acute) Atrial fibrillation with rapid ventricular response (Acute) Biliary obstruction (Acute) Acute gallstone pancreatitis (Acute) Assessment & Plan Assessment/Plan (1) Septic shock: (2) Acute kidney injury: (3) Acute hypoxic respiratory failure: (4) Non-ST elevated myocardial infarction: (5) Atrial fibrillation with rapid ventricular response: (6) Acute gallstone pancreatitis: (7) Mass of pancreas: (8) Hypoglycemia: PLAN: Plan Greater than 60 minutes spent with direct patient care. Discussing with nursing. Visit Charges Inpatient E&M: 98645 Disch Hosp >30min
--- NOTE | 2024-12-21 17:50 | PCM.DEATH ---
Preliminary Cause of Preliminary Cause of Preliminary Cause of : septic shock. cholangitis Date of Admission: 12/20/24 Date of : 12/21/24 (1730) Principle Diagnosis Problem List: Active and Suspected Problems (Updated 12/21/24 @ 07:[address] Patrick Wetzel, DO) Hypoglycemia (Acute) Acute hypoxic respiratory failure (Acute) Septic shock (Acute) Mass of pancreas (Acute) Acute hypotension (Acute) Acute lactic acidosis (Acute) Non-ST elevated myocardial infarction (Acute) Leukocytosis (Acute) Acute kidney injury (Acute) Acute dehydration (Acute) Atrial fibrillation with rapid ventricular response (Acute) Biliary obstruction (Acute) Acute gallstone pancreatitis (Acute) Hospital Course Patient presented with septic shock. Concerning for cholangitis as she was found to have a 24mm gallstone in the distal obstructing stone. Pt required 3 pressors. Condition deteriorated and she required intubated. Patient's sister was contacted and wanted patient to be DNRCC. Patient was terminated extubated. She on 12/21/24 at 1730. Assessment & Plan Assessment/Plan (1) Septic shock: PLAN: etiology unclear: cholangitis v other. follow up cultures abx w pip/tazo on norepi, vasopressin and phyenylephrine started on hydrocortisone POCUS: IVC enlarged and noncollapsable and additional IVF boluses may worsen respiratory status. (2) Acute kidney injury: PLAN: 2/2 shock. Dehydration. continue IVF (3) Acute hypoxic respiratory failure: PLAN: 2/2 septic shock intubated 12/21 (4) Non-ST elevated myocardial infarction: PLAN: suspect type 2 event given septic shock and afib w RVR. though cannot rule out type I event at present. Grossly diminished LV on POCUS. formal echo report pending. cardiology consulted. (5) Atrial fibrillation with rapid ventricular response: PLAN: was on dilt gtt echo ordered. cardiology consulted. (6) Acute gallstone pancreatitis: PLAN: GI and GS on consult Clearly not a candidate for surgery/ERCP at this time given critical status DW Dr. Edward. (7) Mass of pancreas: PLAN: Cancer v other. (8) Hypoglycemia: PLAN: 2/2 sepsis. received amps of dextrose and D10 infusion PLAN: Plan Greater than 60 minutes spent with direct patient care. Discussing with nursing. Visit Charges Inpatient E&M: 60436 Disch Hosp >30min
--- NOTE | 2024-12-21 17:56 | NURSING ---
time of 1729, verified with ANA LAURA Harrington Dr. notified
[2024-12-22 00:42] LABS: Carbon Dioxide 8.4 mmol/L (21.0-32.0)
== END 2024-12-21 18:55 | DRG 871 ==
LOC: ED 20:16 → ICU 21:22
PROVIDERS: Internal Medicine Critical Care Medicine; Admitting Provider Family Medicine; Emergency Provider Emergency Medicine; PCP Family Medicine
DX: A41.9 Sepsis, unspecified organism (principal); N17.0 Acute kidney failure with tubular necrosis; K72.00 Acute and subacute hepatic failure without coma; R65.21 Severe sepsis with septic shock; J96.21 Acute and chronic respiratory failure with hypoxia; K85.10 Biliary acute pancreatitis without necrosis or infection; G93.41 Metabolic encephalopathy; I21.A1 Myocardial infarction type 2; K80.63 Calculus of gallbladder and bile duct with acute cholecystitis with obstruction; E87.21 Acute metabolic acidosis; C25.9 Malignant neoplasm of pancreas, unspecified; J96.11 Chronic respiratory failure with hypoxia; K80.33 Calculus of bile duct with acute cholangitis with obstruction; I27.29 Other secondary pulmonary hypertension; G30.9 Alzheimer's disease, unspecified; I12.9 Hypertensive chronic kidney disease with stage 1 through stage 4 chronic kidney disease, or unspecified chronic kidney disease; F32.A Depression, unspecified; E66.9 Obesity, unspecified; I48.0 Paroxysmal atrial fibrillation; E86.0 Dehydration; N18.2 Chronic kidney disease, stage 2 (mild); E78.5 Hyperlipidemia, unspecified; D86.0 Sarcoidosis of lung; F41.9 Anxiety disorder, unspecified; F02.80 Dementia in other diseases classified elsewhere, unspecified severity, without behavioral disturbance, psychotic disturbance, mood disturbance, and anxiety; E16.2 Hypoglycemia, unspecified; Z66 Do not resuscitate; Z79.51 Long term (current) use of inhaled steroids; Z79.899 Other long term (current) drug therapy; Z99.81 Dependence on supplemental oxygen; T41.5X6A Underdosing of therapeutic gases, initial encounter; Z91.148 Patient's other noncompliance with medication regimen for other reason; Z68.33 Body mass index [BMI] 33.0-33.9, adult
CPT/HCPCS: 31500; 31720; 36600; 51702; 70450; 71045; 71046; 74018; 74176; 80048; 80053; 80061; 80076; 82803; 82962; 83605; 83690; 83735; 84100; 84443; 84484; 85025; 85610; 85730; 87040; 87070; 87077; 87186; 87205; 87631; 87641; 92960; 93005; 93306; 94002; 94640; 94762; 99252; 99285; P9047; P9612; A4216; G0463; J2405